=== PATIENT | male | born 1940 | race Caucasian/White ===

== ENCOUNTER 2018-01-08 11:52 | Inpatient (IN) | payer MEDICARE, OTHER ==
[~2018-01-08] VITALS: Ht 177.8 cm; Wt 93.3 kg
[~2018-01-08 11:52] MED LIST: ALLO300 PO; FURO20 PO; LOSA25 PO; METO100ER PO; POTCHL10ER PO; WARF6 PO
[2018-01-08] MEDS ORDERED: XARELTO10 MG PO (12:12)
[2018-01-08 12:54] LABS: BASOPHILS ABSOLUTE AUTO 0.05 K/mm3 (0.00-0.23); BASOPHILS PERCENT AUTO 0 % (0-2); EOSINOPHILS ABSOLUTE AUTO 0.11 K/mm3 (0.00-0.68); EOSINOPHILS PERCENT AUTO 1 % (0-6); Hematocrit 42.9 % (37.0-53.0); IMMATURE GRAN ABSOLUTE AUTO 0.11 K/mm3 (0.00-0.10); IMMATURE GRAN PERCENT AUTO 1 % (0-1); LYMPHOCYTES ABSOLUTE AUTO 1.93 K/mm3 (0.84-5.20); LYMPHOCYTES PERCENT AUTO 13 % (21-46); MONOCYTES PERCENT AUTO 11 % (4-13); Mean Corpuscular HGB 31.5 pg (26.0-34.0); Mean Corpuscular HGB Conc 32.6 g/dL (31.5-36.5); Mean Corpuscular Volume 97 fL (80-100); Mean Platelet Volume 11.1 fL (9.1-12.4); NEUTROPHILS ABSOLUTE AUTO 11.46 K/mm3 (1.96-9.15); NEUTROPHILS PERCENT AUTO 75 % (41-73); Platelet Count 191 K/mm3 (150-400); RDW Coefficient Variation 13.6 % (11.7-14.2); RDW Standard Deviation 48.2 fL (35.1-46.3); Red Blood Cell Count 4.44 M/mm3 (4.30-5.90); White Blood Cell Count 15.26 K/mm3 (4.00-11.30)
[2018-01-08 13:14] LABS: Bun/Creatinine Ratio 17.1 (12.0-20.0); Creatinine, Blood 1.46 mg/dL (0.60-1.20); Potassium, Blood 4.5 mmol/L (3.5-5.5)
[2018-01-09 05:15] LABS: BASOPHILS ABSOLUTE AUTO 0.04 K/mm3 (0.00-0.23); BASOPHILS PERCENT AUTO 0 % (0-2); EOSINOPHILS ABSOLUTE AUTO 0.22 K/mm3 (0.00-0.68); EOSINOPHILS PERCENT AUTO 2 % (0-6); Hematocrit 38.5 % (37.0-53.0); Hemoglobin 12.4 g/dL (13.5-17.5); IMMATURE GRAN ABSOLUTE AUTO 0.07 K/mm3 (0.00-0.10); IMMATURE GRAN PERCENT AUTO 1 % (0-1); LYMPHOCYTES ABSOLUTE AUTO 1.53 K/mm3 (0.84-5.20); LYMPHOCYTES PERCENT AUTO 15 % (21-46); MONOCYTES ABSOLUTE AUTO 1.14 K/mm3 (0.16-1.47); MONOCYTES PERCENT AUTO 11 % (4-13); Mean Corpuscular HGB 31.3 pg (26.0-34.0); Mean Corpuscular HGB Conc 32.2 g/dL (31.5-36.5); Mean Corpuscular Volume 97 fL (80-100); Mean Platelet Volume 10.8 fL (9.1-12.4); NEUTROPHILS ABSOLUTE AUTO 7.14 K/mm3 (1.96-9.15); NEUTROPHILS PERCENT AUTO 70 % (41-73); Platelet Count 163 K/mm3 (150-400); RDW Coefficient Variation 13.4 % (11.7-14.2); RDW Standard Deviation 47.9 fL (35.1-46.3); Red Blood Cell Count 3.96 M/mm3 (4.30-5.90); White Blood Cell Count 10.14 K/mm3 (4.00-11.30)
[2018-01-09 05:36] LABS: Albumin, Blood 2.8 g/dL (3.4-5.0); Albumin/Globulin Ratio 0.8 (0.8-1.8); Bilirubin, Total 0.9 mg/dL (0.1-1.0); Bun/Creatinine Ratio 20.5 (12.0-20.0); Calcium, Blood 8.4 mg/dL (8.5-10.1); Creatinine, Blood 1.32 mg/dL (0.60-1.20); Globulin, Blood 3.5 g/dL (2.2-4.0); Potassium, Blood 4.1 mmol/L (3.5-5.5); Total Protein, Blood 6.3 g/dL (6.4-8.2)
[2018-01-10 04:17] LABS: BASOPHILS ABSOLUTE AUTO 0.03 K/mm3 (0.00-0.23); BASOPHILS PERCENT AUTO 0 % (0-2); EOSINOPHILS ABSOLUTE AUTO 0.28 K/mm3 (0.00-0.68); EOSINOPHILS PERCENT AUTO 3 % (0-6); Hematocrit 38.6 % (37.0-53.0); Hemoglobin 12.4 g/dL (13.5-17.5); IMMATURE GRAN ABSOLUTE AUTO 0.08 K/mm3 (0.00-0.10); IMMATURE GRAN PERCENT AUTO 1 % (0-1); LYMPHOCYTES ABSOLUTE AUTO 1.62 K/mm3 (0.84-5.20); LYMPHOCYTES PERCENT AUTO 18 % (21-46); MONOCYTES ABSOLUTE AUTO 1.08 K/mm3 (0.16-1.47); MONOCYTES PERCENT AUTO 12 % (4-13); Mean Corpuscular HGB 31.8 pg (26.0-34.0); Mean Corpuscular HGB Conc 32.1 g/dL (31.5-36.5); Mean Corpuscular Volume 99 fL (80-100); Mean Platelet Volume 10.8 fL (9.1-12.4); NEUTROPHILS ABSOLUTE AUTO 6.16 K/mm3 (1.96-9.15); NEUTROPHILS PERCENT AUTO 67 % (41-73); Platelet Count 162 K/mm3 (150-400); RDW Coefficient Variation 13.7 % (11.7-14.2); RDW Standard Deviation 49.7 fL (35.1-46.3); White Blood Cell Count 9.25 K/mm3 (4.00-11.30)
[2018-01-10 05:08] LABS: Albumin, Blood 2.8 g/dL (3.4-5.0); Albumin/Globulin Ratio 0.8 (0.8-1.8); Bilirubin, Total 0.8 mg/dL (0.1-1.0); Calcium, Blood 8.4 mg/dL (8.5-10.1); Creatinine, Blood 1.53 mg/dL (0.60-1.20); Globulin, Blood 3.5 g/dL (2.2-4.0); Potassium, Blood 4.4 mmol/L (3.5-5.5); Total Protein, Blood 6.3 g/dL (6.4-8.2)
[2018-01-11 04:17] LABS: BASOPHILS ABSOLUTE AUTO 0.04 K/mm3 (0.00-0.23); BASOPHILS PERCENT AUTO 0 % (0-2); EOSINOPHILS PERCENT AUTO 3 % (0-6); Hemoglobin 13.2 g/dL (13.5-17.5); IMMATURE GRAN ABSOLUTE AUTO 0.09 K/mm3 (0.00-0.10); IMMATURE GRAN PERCENT AUTO 1 % (0-1); LYMPHOCYTES ABSOLUTE AUTO 1.75 K/mm3 (0.84-5.20); LYMPHOCYTES PERCENT AUTO 19 % (21-46); MONOCYTES ABSOLUTE AUTO 1.11 K/mm3 (0.16-1.47); MONOCYTES PERCENT AUTO 12 % (4-13); Mean Corpuscular HGB 31.4 pg (26.0-34.0); Mean Corpuscular HGB Conc 32.2 g/dL (31.5-36.5); Mean Corpuscular Volume 97 fL (80-100); Mean Platelet Volume 10.4 fL (9.1-12.4); NEUTROPHILS ABSOLUTE AUTO 5.78 K/mm3 (1.96-9.15); NEUTROPHILS PERCENT AUTO 64 % (41-73); Platelet Count 188 K/mm3 (150-400); RDW Coefficient Variation 13.5 % (11.7-14.2); RDW Standard Deviation 48.2 fL (35.1-46.3); Red Blood Cell Count 4.21 M/mm3 (4.30-5.90); White Blood Cell Count 9.07 K/mm3 (4.00-11.30)
[2018-01-11 04:39] LABS: Bun/Creatinine Ratio 13.7 (12.0-20.0); Calcium, Blood 8.7 mg/dL (8.5-10.1); Creatinine, Blood 1.31 mg/dL (0.60-1.20); Potassium, Blood 4.3 mmol/L (3.5-5.5)
[2018-01-12 06:01] LABS: BASOPHILS ABSOLUTE AUTO 0.05 K/mm3 (0.00-0.23); BASOPHILS PERCENT AUTO 1 % (0-2); EOSINOPHILS ABSOLUTE AUTO 0.29 K/mm3 (0.00-0.68); EOSINOPHILS PERCENT AUTO 4 % (0-6); Hemoglobin 13.4 g/dL (13.5-17.5); IMMATURE GRAN ABSOLUTE AUTO 0.08 K/mm3 (0.00-0.10); IMMATURE GRAN PERCENT AUTO 1 % (0-1); LYMPHOCYTES ABSOLUTE AUTO 1.78 K/mm3 (0.84-5.20); LYMPHOCYTES PERCENT AUTO 23 % (21-46); MONOCYTES PERCENT AUTO 13 % (4-13); Mean Corpuscular HGB 31.3 pg (26.0-34.0); Mean Corpuscular HGB Conc 32.7 g/dL (31.5-36.5); Mean Corpuscular Volume 96 fL (80-100); Mean Platelet Volume 10.4 fL (9.1-12.4); NEUTROPHILS PERCENT AUTO 60 % (41-73); Platelet Count 192 K/mm3 (150-400); RDW Coefficient Variation 13.3 % (11.7-14.2); RDW Standard Deviation 47.3 fL (35.1-46.3); Red Blood Cell Count 4.28 M/mm3 (4.30-5.90)
[2018-01-12 06:20] LABS: Bun/Creatinine Ratio 13.3 (12.0-20.0); Creatinine, Blood 1.28 mg/dL (0.60-1.20); Potassium, Blood 4.3 mmol/L (3.5-5.5)
[2018-01-13 04:06] LABS: Hematocrit 41.5 % (37.0-53.0); Hemoglobin 13.6 g/dL (13.5-17.5); Mean Corpuscular HGB 31.3 pg (26.0-34.0); Mean Corpuscular HGB Conc 32.8 g/dL (31.5-36.5); Mean Corpuscular Volume 95 fL (80-100); Platelet Count 206 K/mm3 (150-400); RDW Coefficient Variation 13.2 % (11.7-14.2); RDW Standard Deviation 46.8 fL (35.1-46.3); Red Blood Cell Count 4.35 M/mm3 (4.30-5.90); White Blood Cell Count 9.02 K/mm3 (4.00-11.30)
[2018-01-13 04:25] LABS: Bun/Creatinine Ratio 12.4 (12.0-20.0); Calcium, Blood 8.9 mg/dL (8.5-10.1); Creatinine, Blood 1.37 mg/dL (0.60-1.20); Potassium, Blood 4.2 mmol/L (3.5-5.5)
[2018-01-15] MEDS ORDERED: OXYC5 PO (11:07)
[2018-01-15] MEDS ORDERED: AMOX875 PO (11:54)
== END 2018-01-15 13:25 | disposition home or self-care (01) | DRG 872 ==
LOC: ER 11:52 → SURS 14:18
PROVIDERS: Internal Medicine; Physician Assistant
DX: A41.9 Sepsis, unspecified organism (principal); N17.9 Acute kidney failure, unspecified; I13.0 Hypertensive heart and chronic kidney disease with heart failure and stage 1 through stage 4 chronic kidney disease, or unspecified chronic kidney disease; I50.22 Chronic systolic (congestive) heart failure; I48.2 Chronic atrial fibrillation; S61.451A Open bite of right hand, initial encounter; W55.01XA Bitten by cat, initial encounter; N18.3 Chronic kidney disease, stage 3 (moderate); M65.141 Other infective (teno)synovitis, right hand; M10.9 Gout, unspecified; Z79.01 Long term (current) use of anticoagulants; Z79.899 Other long term (current) drug therapy; Z87.891 Personal history of nicotine dependence; Z86.73 Personal history of transient ischemic attack (TIA), and cerebral infarction without residual deficits
CPT/HCPCS: 36415; 73130; 73201; 76882; 80048; 80053; 83605; 83880; 85025; 85027; 87040; 96365; 99285; J1885; J2543; J7030; Q9967

== ENCOUNTER 2023-06-14 16:32 | Emergency (ER) | payer MEDICARE, OTHER ==
[~2023-06-14] VITALS: Ht 177.8 cm; Wt 102.5 kg
[~2023-06-14 16:32] MED LIST changes: -DOCU100 PO; -FERROUS SULFAT325 M3 PO
[2023-06-14 17:18] LABS: BASOPHILS ABSOLUTE AUTO 0.02 K/mm3 (0.00-0.23); BASOPHILS PERCENT AUTO 0 % (0-2); EOSINOPHILS PERCENT AUTO 0 % (0-6); Hematocrit 22.2 % (37.0-53.0); Hemoglobin 7.4 g/dL (13.5-17.5); IMMATURE GRAN ABSOLUTE AUTO 0.21 K/mm3 (0.00-0.10); IMMATURE GRAN PERCENT AUTO 1 % (0-1); LYMPHOCYTES ABSOLUTE AUTO 2.05 K/mm3 (0.84-5.20); LYMPHOCYTES PERCENT AUTO 11 % (21-46); MONOCYTES ABSOLUTE AUTO 1.16 K/mm3 (0.16-1.47); MONOCYTES PERCENT AUTO 6 % (4-13); Mean Corpuscular HGB 33.6 pg (26.0-34.0); Mean Corpuscular HGB Conc 33.3 g/dL (31.5-36.5); Mean Corpuscular Volume 101 fL (80-100); Mean Platelet Volume 10.1 fL (9.1-12.4); NEUTROPHILS ABSOLUTE AUTO 15.54 K/mm3 (1.96-9.15); NEUTROPHILS PERCENT AUTO 82 % (41-73); NRBC ABSOLUTE 0.08 K/mm3 (0.00-0.02); NRBC Auto 0.4 /100 WBC (0.0-0.2); Platelet Count 203 K/mm3 (150-400); RDW Coefficient Variation 15.5 % (11.7-14.2); RDW Standard Deviation 54.8 fL (35.1-46.3); White Blood Cell Count 18.98 K/mm3 (4.00-11.30)
[2023-06-14 17:42] LABS: Albumin, Blood 3.2 g/dL (3.4-5.0); Bilirubin, Total 0.6 mg/dL (0.1-1.0); Bun/Creatinine Ratio 30.1 (12.0-20.0); Calcium, Blood 8.9 mg/dL (8.5-10.1); Creatinine, Blood 1.83 mg/dL (0.60-1.20); Globulin, Blood 3.1 g/dL (2.2-4.0); Potassium, Blood 4.8 mmol/L (3.5-5.5); Total Protein, Blood 6.3 g/dL (6.4-8.2)
[2023-06-14 18:54] LABS: International Normalized Ratio 2.04; Prothrombin Time Results 20.6 Sec (9.7-11.5)
[2023-06-14 21:45] VITALS: BP 125/88
== END 2023-06-15 04:06 | disposition home or self-care (01) ==
LOC: ER 16:32 → MEDS 16:33 → ER 06-15 04:06
PROVIDERS: Emergency Medicine
DX: D62 Acute posthemorrhagic anemia (principal); I48.91 Unspecified atrial fibrillation; D68.59 Other primary thrombophilia; N17.9 Acute kidney failure, unspecified; E87.1 Hypo-osmolality and hyponatremia; F10.20 Alcohol dependence, uncomplicated; I12.9 Hypertensive chronic kidney disease with stage 1 through stage 4 chronic kidney disease, or unspecified chronic kidney disease; N18.30 Chronic kidney disease, stage 3 unspecified; Z87.891 Personal history of nicotine dependence; Z79.01 Long term (current) use of anticoagulants; Z79.899 Other long term (current) drug therapy
CPT/HCPCS: 36430; 80053; 85025; 85610; 85730; 86850; 86900; 86901; 86923; 93005; 93010; 99285-25; G0378; J7030; P9016

== ENCOUNTER → 2023-06-14 | Outpatient (CLI) | payer MEDICARE, OTHER ==
[~2023-06-14] MED LIST changes: +ALBU90OI; +AMOX875 PO; +BUDESONIDE0.5 MG/2 M; +Brovana15 MCG/2 M; +DOCU100 PO; +FERROUS SULFAT325 M3 PO; +FLONASE ALLERG9.9 ML; +FURO20; +OXYC5 PO; +PROAIR DIGIHAL90 MCG; +WARF6; +XARELTO10 MG PO
[2023-06-14 15:45] LABS: BASOPHILS ABSOLUTE AUTO 0.03 K/mm3 (0.00-0.23); BASOPHILS PERCENT AUTO 0 % (0-2); EOSINOPHILS PERCENT AUTO 0 % (0-6); Hematocrit 21.8 % (37.0-53.0); Hemoglobin 7.4 g/dL (13.5-17.5); IMMATURE GRAN ABSOLUTE AUTO 0.19 K/mm3 (0.00-0.10); IMMATURE GRAN PERCENT AUTO 1 % (0-1); LYMPHOCYTES ABSOLUTE AUTO 1.43 K/mm3 (0.84-5.20); LYMPHOCYTES PERCENT AUTO 8 % (21-46); MONOCYTES ABSOLUTE AUTO 0.95 K/mm3 (0.16-1.47); MONOCYTES PERCENT AUTO 6 % (4-13); Mean Corpuscular HGB 34.4 pg (26.0-34.0); Mean Corpuscular HGB Conc 33.9 g/dL (31.5-36.5); Mean Corpuscular Volume 101 fL (80-100); Mean Platelet Volume 9.6 fL (9.1-12.4); NEUTROPHILS ABSOLUTE AUTO 14.78 K/mm3 (1.96-9.15); NEUTROPHILS PERCENT AUTO 85 % (41-73); NRBC ABSOLUTE 0.05 K/mm3 (0.00-0.02); NRBC Auto 0.3 /100 WBC (0.0-0.2); Platelet Count 184 K/mm3 (150-400); RDW Coefficient Variation 15.6 % (11.7-14.2); Red Blood Cell Count 2.15 M/mm3 (4.30-5.90); White Blood Cell Count 17.38 K/mm3 (4.00-11.30)
[2023-06-14 15:55] LABS: Albumin, Blood 3.1 g/dL (3.4-5.0); Bilirubin, Total 0.5 mg/dL (0.1-1.0); Calcium, Blood 8.9 mg/dL (8.5-10.1); Globulin, Blood 3.1 g/dL (2.2-4.0); Potassium, Blood 4.8 mmol/L (3.5-5.5); Total Protein, Blood 6.2 g/dL (6.4-8.2)
[2023-06-14 16:56] LABS: International Normalized Ratio 2.13; Prothrombin Time Results 21.4 Sec (9.7-11.5)
== END ==
LOC: LAB 15:40 → LAB SHORT 15:40
PROVIDERS: Emergency Medicine
DX: K13.79 Other lesions of oral mucosa (principal); Z79.01 Long term (current) use of anticoagulants
CPT/HCPCS: 80053; 85025; 85610

== ENCOUNTER 2023-06-24 15:34 | Emergency (ER) | payer MEDICARE, OTHER ==
[~2023-06-24] VITALS: Ht 177.8 cm; Wt 98.4 kg
[~2023-06-24 15:34] MED LIST changes: -WARF6
[2023-06-24 16:22] LABS: BASOPHILS ABSOLUTE AUTO 0.04 K/mm3 (0.00-0.23); BASOPHILS PERCENT AUTO 0 % (0-2); EOSINOPHILS ABSOLUTE AUTO 0.03 K/mm3 (0.00-0.68); EOSINOPHILS PERCENT AUTO 0 % (0-6); Hematocrit 23.7 % (37.0-53.0); Hemoglobin 7.4 g/dL (13.5-17.5); IMMATURE GRAN ABSOLUTE AUTO 0.06 K/mm3 (0.00-0.10); IMMATURE GRAN PERCENT AUTO 1 % (0-1); LYMPHOCYTES ABSOLUTE AUTO 1.36 K/mm3 (0.84-5.20); LYMPHOCYTES PERCENT AUTO 12 % (21-46); MONOCYTES ABSOLUTE AUTO 0.89 K/mm3 (0.16-1.47); MONOCYTES PERCENT AUTO 8 % (4-13); Mean Corpuscular HGB Conc 31.2 g/dL (31.5-36.5); Mean Corpuscular Volume 103 fL (80-100); Mean Platelet Volume 9.4 fL (9.1-12.4); NEUTROPHILS ABSOLUTE AUTO 8.85 K/mm3 (1.96-9.15); NEUTROPHILS PERCENT AUTO 79 % (41-73); NRBC Auto 0.9 /100 WBC (0.0-0.2); Platelet Count 375 K/mm3 (150-400); RDW Coefficient Variation 16.1 % (11.7-14.2); RDW Standard Deviation 59.4 fL (35.1-46.3); Red Blood Cell Count 2.31 M/mm3 (4.30-5.90); White Blood Cell Count 11.23 K/mm3 (4.00-11.30)
[2023-06-24 16:43] LABS: Albumin, Blood 3.2 g/dL (3.4-5.0); Albumin/Globulin Ratio 1.1 (0.8-1.8); Bilirubin, Total 0.3 mg/dL (0.1-1.0); Bun/Creatinine Ratio 16.3 (12.0-20.0); Calcium, Blood 8.6 mg/dL (8.5-10.1); Creatinine, Blood 2.08 mg/dL (0.60-1.20); Magnesium, Blood 2.9 mg/dL (1.6-2.4); Potassium, Blood 4.9 mmol/L (3.5-5.5); Total Protein, Blood 6.2 g/dL (6.4-8.2)
[2023-06-24 21:18] VITALS: BP 124/68
[2023-06-25] MEDS ORDERED: DOCU100 PO (00:44)
[2023-06-25] MEDS ORDERED: FERROUS SULFAT325 M3 PO (00:44)
[2023-06-26] MEDS ORDERED: TORSE20 PO (18:05)
[2023-06-26] MEDS ORDERED: ALDACTONE25 MG PO (18:06)
[2023-06-26] MEDS ORDERED: [UNRECOGNIZED DRUG - CODE] PO (18:07)
[2023-07-08] MEDS ORDERED: FURO40 PO (11:49)
[2023-07-08] MEDS ORDERED: METO50ER PO (11:50)
[2023-07-08] MEDS ORDERED: PANT40 PO (11:50)
[2023-07-08] MEDS ORDERED: K-Dur10 MEQ (11:51)
[2023-07-16] MEDS ORDERED: XARELTO20 MG PO (13:41)
[2023-07-16] MEDS ORDERED: DECADRON6 M1 PO (13:41)
== END 2023-06-25 01:10 | disposition home or self-care (01) ==
LOC: ER 15:34
PROVIDERS: Physician Assistant
DX: D64.9 Anemia, unspecified (principal); I11.0 Hypertensive heart disease with heart failure; I50.20 Unspecified systolic (congestive) heart failure; I48.91 Unspecified atrial fibrillation; Z79.899 Other long term (current) drug therapy; Z79.01 Long term (current) use of anticoagulants; Z79.52 Long term (current) use of systemic steroids; Z87.891 Personal history of nicotine dependence
CPT/HCPCS: 36415; 36430; 71046; 80053; 83735; 85025; 86850; 86900; 86901; 86923; 93005; 93010; 99284-25; J7030; P9016

== ENCOUNTER 2023-12-01 10:00 | Emergency (ER) | payer MEDICARE, OTHER ==
[~2023-12-01] VITALS: Ht 175.3 cm; Wt 79.4 kg
[~2023-12-01 10:00] MED LIST changes: +ALDACTONE25 MG PO; +DECADRON6 M1 PO; +DOCU100 PO; +FERROUS SULFAT325 M3 PO; +FURO40 PO; +K-Dur10 MEQ; +METO50ER PO; +PANT40 PO; +TORSE20 PO; +XARELTO20 MG PO; +[UNRECOGNIZED DRUG - CODE] PO
[2023-12-01 11:13] LABS: BASOPHILS ABSOLUTE AUTO 0.04 K/mm3 (0.00-0.23); BASOPHILS PERCENT AUTO 1 % (0-2); EOSINOPHILS ABSOLUTE AUTO 0.05 K/mm3 (0.00-0.68); EOSINOPHILS PERCENT AUTO 1 % (0-6); Hemoglobin 13.3 g/dL (13.5-17.5); IMMATURE GRAN ABSOLUTE AUTO 0.03 K/mm3 (0.00-0.10); IMMATURE GRAN PERCENT AUTO 0 % (0-1); LYMPHOCYTES ABSOLUTE AUTO 2.59 K/mm3 (0.84-5.20); LYMPHOCYTES PERCENT AUTO 34 % (21-46); MONOCYTES ABSOLUTE AUTO 0.74 K/mm3 (0.16-1.47); MONOCYTES PERCENT AUTO 10 % (4-13); Mean Corpuscular HGB 34.5 pg (26.0-34.0); Mean Corpuscular HGB Conc 33.3 g/dL (31.5-36.5); Mean Corpuscular Volume 104 fL (80-100); Mean Platelet Volume 9.3 fL (9.1-12.4); NEUTROPHILS ABSOLUTE AUTO 4.14 K/mm3 (1.96-9.15); NEUTROPHILS PERCENT AUTO 55 % (41-73); Platelet Count 199 K/mm3 (150-400); RDW Coefficient Variation 15.9 % (11.7-14.2); RDW Standard Deviation 61.2 fL (35.1-46.3); Red Blood Cell Count 3.86 M/mm3 (4.30-5.90); White Blood Cell Count 7.59 K/mm3 (4.00-11.30)
[2023-12-01 11:32] LABS: Albumin, Blood 2.8 g/dL (3.4-5.0); Albumin/Globulin Ratio 0.8 (0.8-1.8); Bilirubin, Total 0.7 mg/dL (0.1-1.0); Bun/Creatinine Ratio 16.6 (12.0-20.0); Calcium, Blood 8.5 mg/dL (8.5-10.1); Creatinine, Blood 0.97 mg/dL (0.60-1.20); Globulin, Blood 3.3 g/dL (2.2-4.0); Potassium, Blood 4.7 mmol/L (3.5-5.5); Total Protein, Blood 6.1 g/dL (6.4-8.2)
[2023-12-01] MEDS ORDERED: NS 1,000 ML IV SCH (12:30)
[2023-12-01] MEDS ORDERED: Acetaminophen 500 MG Tab PO ONE (12:55)
[2023-12-01 13:25] LABS: International Normalized Ratio 3.1; Prothrombin Time Results 30.5 Sec (9.7-11.5)
[2023-12-01 14:14] LABS: Source, Urine Clean Catch
[2023-12-01 14:24] LABS: Appearance, Urine Clear (Clear); Bilirubin, Urine Neg (Neg); Blood, Urine 1+ (Neg); Color, Urine Yellow (P-Yellow); Glucose Qualitative, Urine Neg (Neg); Ketones, Urine Neg (Neg); Leukocyte Esterase, Urine 2+ (Neg); Nitrite, Urine Neg (Neg); Protein, Urine Neg (Neg); Urobilinogen, Urine NORM (Normal)
[2023-12-01 14:39] VITALS: BP 136/79
[2023-12-01 14:42] LABS: Bacteria Many /hpf; Squamous Epithelial Cells Rare /hpf (Few)
[2023-12-01] MEDS ORDERED: CEPH500 PO (14:47)
== END 2023-12-01 15:09 | disposition home or self-care (01) ==
LOC: ER 10:00
PROVIDERS: Emergency Medicine
DX: S42.032A Displaced fracture of lateral end of left clavicle, initial encounter for closed fracture (principal); S00.12XA Contusion of left eyelid and periocular area, initial encounter; N39.0 Urinary tract infection, site not specified; W18.30XA Fall on same level, unspecified, initial encounter; Z79.899 Other long term (current) drug therapy; N18.30 Chronic kidney disease, stage 3 unspecified; D63.1 Anemia in chronic kidney disease; I48.91 Unspecified atrial fibrillation; I13.0 Hypertensive heart and chronic kidney disease with heart failure and stage 1 through stage 4 chronic kidney disease, or unspecified chronic kidney disease; I50.9 Heart failure, unspecified; M10.9 Gout, unspecified; J44.9 Chronic obstructive pulmonary disease, unspecified; Z87.891 Personal history of nicotine dependence
CPT/HCPCS: 70450; 71045; 72125; 73030; 80053; 81001; 84484; 85025; 85610; 85730; 87086; 93005; 93010; 99284-25; A9270; J7030

== ENCOUNTER 2024-08-05 15:08 | Emergency (ER) | payer MEDICARE, OTHER ==
[~2024-08-05] VITALS: Ht 177.8 cm; Wt 83.5 kg
[~2024-08-05 15:08] MED LIST changes: -ALBU90OI; +ALBU90OI INH; +ALLO100 PO; -ALLO300 PO; -BUDESONIDE0.5 MG/2 M; +BUDESONIDE0.5 MG/2 M INH; +CEPH500 PO; +FERSU300 PO; +LIDO700A20 TOP; +WARF3 PO
[2024-08-05 15:10] VITALS: BP 132/86
[2024-08-05] MEDS ORDERED: Phytonadione 5 MG Tab PO ONE (15:15)
== END 2024-08-05 15:35 | disposition home or self-care (01) ==
LOC: ER 15:08
DX: R79.1 Abnormal coagulation profile (principal); I13.0 Hypertensive heart and chronic kidney disease with heart failure and stage 1 through stage 4 chronic kidney disease, or unspecified chronic kidney disease; N18.30 Chronic kidney disease, stage 3 unspecified; I50.9 Heart failure, unspecified; D63.1 Anemia in chronic kidney disease; M10.9 Gout, unspecified; I48.20 Chronic atrial fibrillation, unspecified; J44.9 Chronic obstructive pulmonary disease, unspecified; Z87.891 Personal history of nicotine dependence; Z79.51 Long term (current) use of inhaled steroids; Z79.01 Long term (current) use of anticoagulants; Z79.899 Other long term (current) drug therapy; Z86.73 Personal history of transient ischemic attack (TIA), and cerebral infarction without residual deficits; Z59.89 Other problems related to housing and economic circumstances
CPT/HCPCS: 36415; 85610; 99283; A9270

== ENCOUNTER 2024-10-07 17:10 | Inpatient (IN) | payer MEDICARE, OTHER ==
[~2024-10-07] VITALS: Ht 180.3 cm; Wt 88.6 kg
[2024-10-07 18:30] LABS: BASOPHILS ABSOLUTE AUTO 0.04 K/mm3 (0.00-0.23); BASOPHILS PERCENT AUTO 0 % (0-2); EOSINOPHILS ABSOLUTE AUTO 0.03 K/mm3 (0.00-0.68); EOSINOPHILS PERCENT AUTO 0 % (0-6); Hematocrit 35.6 % (37.0-53.0); Hemoglobin 12.2 g/dL (13.5-17.5); IMMATURE GRAN ABSOLUTE AUTO 0.05 K/mm3 (0.00-0.10); IMMATURE GRAN PERCENT AUTO 1 % (0-1); LYMPHOCYTES ABSOLUTE AUTO 2.13 K/mm3 (0.84-5.20); LYMPHOCYTES PERCENT AUTO 22 % (21-46); MONOCYTES ABSOLUTE AUTO 0.77 K/mm3 (0.16-1.47); MONOCYTES PERCENT AUTO 8 % (4-13); Mean Corpuscular HGB 38.4 pg (26.0-34.0); Mean Corpuscular HGB Conc 34.3 g/dL (31.5-36.5); Mean Corpuscular Volume 112 fL (80-100); Mean Platelet Volume 10.5 fL (9.1-12.4); NEUTROPHILS ABSOLUTE AUTO 6.54 K/mm3 (1.96-9.15); NEUTROPHILS PERCENT AUTO 68 % (41-73); Platelet Count 126 K/mm3 (150-400); RDW Coefficient Variation 16.6 % (11.7-14.2); RDW Standard Deviation 69.2 fL (35.1-46.3); Red Blood Cell Count 3.18 M/mm3 (4.30-5.90); White Blood Cell Count 9.56 K/mm3 (4.00-11.30)
[2024-10-07 18:40] LABS: Albumin, Blood 2.1 g/dL (3.4-5.0); Albumin/Globulin Ratio 0.6 (0.8-1.8); Bilirubin, Total 2.8 mg/dL (0.1-1.0); Bun/Creatinine Ratio 9.4 (12.0-20.0); Calcium, Blood 8.6 mg/dL (8.5-10.1); Creatinine, Blood 1.91 mg/dL (0.60-1.20); Globulin, Blood 3.7 g/dL (2.2-4.0); Potassium, Blood 3.4 mmol/L (3.5-5.5); Total Protein, Blood 5.8 g/dL (6.4-8.2)
[2024-10-07] MEDS ORDERED: HYDROCODONE-AC1 EA19 PO (18:47)
[2024-10-07] MEDS ORDERED: CEPH500 PO (18:47)
[2024-10-07] MEDS ORDERED: OMEP20ER PO (18:50)
[2024-10-07 19:02] LABS: Magnesium, Blood 1.7 mg/dL (1.6-2.4); Phosphorus, Blood 3.5 mg/dL (2.5-4.9)
[2024-10-07 19:07] LABS: International Normalized Ratio 3.49
[2024-10-07] MEDS ORDERED: NS 1,000 ML IV SCH ×2 (20:10→21:55)
[2024-10-07] MEDS ORDERED: Potassium Chloride 40 MEQ in NS 250 ML IV STA (20:52)
[2024-10-07] MEDS ORDERED: Magnesium Sulf 2 GM/Water 50ML 50 ML IV ONE (20:55)
[2024-10-07] MEDS ORDERED: Potassium Chloride 20 MEQ TabCR PO ONE (21:00)
[2024-10-07] MEDS ORDERED: Albuterol 2.5 MG/3 ML VIAL INH PRN (21:55)
[2024-10-07] MEDS ORDERED: OxyCODONE HCL 5 MG TAB PO PRN (22:00)
[2024-10-07] MEDS ORDERED: Ondansetron HCl 2 MG / ML 2ML Vial IV PRN (22:00)
[2024-10-07] MEDS ORDERED: FLU VACC TS2024-25(6MOS UP)/PF 45 MCG/0.5 ML SYRINGE IM ONE (22:00)
[2024-10-07] MEDS ORDERED: CefTRIAXone Sodium 1,000 MG in NS 100 ML IV SCH (22:20)
[2024-10-07 23:20] VITALS: BP 116/81
[2024-10-08 04:52] VITALS: BP 96/55
--- NOTE | 2024-10-08 05:22 | NUR ---
SHIFT SUMMARY PT ALERT AND ORIENTED TIMES 3-4. ROOM AIR, EARLY ONSET DEMENIA. PT ABLE TO MAKE NEEDS KNOWN AND RECEPTIVE TO CARE. GAVE ANTIBIOTICS BED IN LOW POSITION, CALL LIGHT WITHIN REACH, RAILS TIMES 2.
[2024-10-08 05:40] LABS: Hematocrit 36.2 % (37.0-53.0); Hemoglobin 12.4 g/dL (13.5-17.5); Mean Corpuscular HGB Conc 34.3 g/dL (31.5-36.5); Mean Corpuscular Volume 111 fL (80-100); Mean Platelet Volume 10.5 fL (9.1-12.4); Platelet Count 105 K/mm3 (150-400); RDW Coefficient Variation 16.3 % (11.7-14.2); RDW Standard Deviation 67.4 fL (35.1-46.3); Red Blood Cell Count 3.26 M/mm3 (4.30-5.90)
[2024-10-08 05:54] LABS: International Normalized Ratio 3.67; Prothrombin Time Results 35.7 Sec (9.7-11.5)
[2024-10-08] MEDS ORDERED: Omeprazole 20 MG CapCR PO SCH (06:00)
[2024-10-08 06:14] LABS: Albumin, Blood 1.9 g/dL (3.4-5.0); Albumin/Globulin Ratio 0.6 (0.8-1.8); Bilirubin, Total 2.6 mg/dL (0.1-1.0); Bun/Creatinine Ratio 10.2 (12.0-20.0); Calcium, Blood 8.6 mg/dL (8.5-10.1); Creatinine, Blood 1.77 mg/dL (0.60-1.20); Globulin, Blood 3.4 g/dL (2.2-4.0); Magnesium, Blood 2.1 mg/dL (1.6-2.4); Potassium, Blood 3.8 mmol/L (3.5-5.5); Total Protein, Blood 5.3 g/dL (6.4-8.2)
[2024-10-08 07:16] VITALS: BP 107/72
[2024-10-08] MEDS ORDERED: Allopurinol 100 MG Tab PO SCH (09:00)
[2024-10-08 16:01] VITALS: BP 100/82
--- NOTE | 2024-10-08 16:46 | NUR ---
NO ACUTE CHANGES, CLEARLY MAKES NEEDS KNOWN, SOME QUING NEEDED, FAMILY AT BEDSIDE HELPFUL WITH CARE, MEDICATED FOR PAIN X1, DIET CHANGED TO SOFT BITE SIDE, NEW IV TO LEFT AC, NS INFUSING, NEED URINE FOR UA, CALL LIGHT WITH IN REACH, WILL RELAY TO PM RN
[2024-10-08 19:15] VITALS: BP 117/79
[2024-10-09 04:00] VITALS: BP 116/76
--- NOTE | 2024-10-09 04:26 | NUR ---
SHIFT SUMMARY PATIENT IS ALERT AND ORIENTED 3-4X. PATIENT HAS HAS NO ACUTE EVENTS THIS SHIFT. VITAL SIGNS REVIEWED. PATIENT HAS BEEN SLEEPING MOST OF SHIFT. PATIENT HAS HAD NO COMPLAINTS OF PAIN, NAUSEA, SOB OR VOMITTING THIS SHIFT. IV FLUIDS INFUSED ORDERED. ABX INFUSED ORDERED. PATIENT HAS BEEN A STANDBY ASSIST TO BATHROOM. NO EVENTS ON TELE. BED IN LOCKED AND LOWEST POSITON. CALL LIGHT IN PLACE.
[2024-10-09 06:16] LABS: BASOPHILS ABSOLUTE AUTO 0.06 K/mm3 (0.00-0.23); BASOPHILS PERCENT AUTO 1 % (0-2); EOSINOPHILS ABSOLUTE AUTO 0.36 K/mm3 (0.00-0.68); EOSINOPHILS PERCENT AUTO 4 % (0-6); Hematocrit 37.4 % (37.0-53.0); Hemoglobin 12.9 g/dL (13.5-17.5); IMMATURE GRAN ABSOLUTE AUTO 0.06 K/mm3 (0.00-0.10); IMMATURE GRAN PERCENT AUTO 1 % (0-1); LYMPHOCYTES ABSOLUTE AUTO 1.82 K/mm3 (0.84-5.20); LYMPHOCYTES PERCENT AUTO 18 % (21-46); MONOCYTES ABSOLUTE AUTO 1.08 K/mm3 (0.16-1.47); MONOCYTES PERCENT AUTO 11 % (4-13); Mean Corpuscular HGB 38.9 pg (26.0-34.0); Mean Corpuscular HGB Conc 34.5 g/dL (31.5-36.5); Mean Corpuscular Volume 113 fL (80-100); Mean Platelet Volume 10.7 fL (9.1-12.4); NEUTROPHILS ABSOLUTE AUTO 6.68 K/mm3 (1.96-9.15); NEUTROPHILS PERCENT AUTO 66 % (41-73); Platelet Count 110 K/mm3 (150-400); RDW Coefficient Variation 16.6 % (11.7-14.2); RDW Standard Deviation 69.2 fL (35.1-46.3); Red Blood Cell Count 3.32 M/mm3 (4.30-5.90); White Blood Cell Count 10.06 K/mm3 (4.00-11.30)
[2024-10-09 06:40] LABS: Albumin, Blood 2.1 g/dL (3.4-5.0); Albumin/Globulin Ratio 0.6 (0.8-1.8); Bilirubin, Total 2.3 mg/dL (0.1-1.0); Bun/Creatinine Ratio 12.2 (12.0-20.0); Calcium, Blood 8.6 mg/dL (8.5-10.1); Creatinine, Blood 1.48 mg/dL (0.60-1.20); Globulin, Blood 3.7 g/dL (2.2-4.0); Potassium, Blood 3.7 mmol/L (3.5-5.5); Total Protein, Blood 5.8 g/dL (6.4-8.2)
[2024-10-09 07:11] VITALS: BP 102/82
--- NOTE | 2024-10-09 09:22 | NUR ---
PATIETN AWAKE AND STTING AT EDGE OF BED THIS AM, REQUESTED PAIN MEDICATION, ST CAME FOR THE COGNITIVE SCREEN, PATIENT WAS MORE DROWSY, ST TO ROUND AGAIN TODAY, CALL LIGHT WITH IN REACH
[2024-10-09 10:51] LABS: International Normalized Ratio 3.31; Prothrombin Time Results 32.4 Sec (9.7-11.5)
[2024-10-09 12:13] LABS: Source, Urine Straight Cath
[2024-10-09 12:19] LABS: Appearance, Urine Hazy (Clear); Bilirubin, Urine Neg (Neg); Blood, Urine 5+ (Neg); Color, Urine Amber (P-Yellow); Glucose Qualitative, Urine Neg (Neg); Ketones, Urine 1+ (Neg); Leukocyte Esterase, Urine 2+ (Neg); Nitrite, Urine Neg (Neg); Protein, Urine 2+ (Neg); Specific Gravity, Urine 1.015 (1.003-1.022); Urobilinogen, Urine 1+ (Normal)
[2024-10-09 12:31] LABS: Red Blood Cells, Urine 25-50 /hpf (0-2)
[2024-10-09 12:37] LABS: Amorphous Light (0-Heavy); Bacteria Mod /hpf; Granular Casts 0-2 /lpf (0)
[2024-10-09 12:38] LABS: Squamous Epithelial Cells Rare /hpf (Few); Transitional Epithelial Cells Rare /hpf (0-Rare)
--- NOTE | 2024-10-09 14:03 | NUR ---
Spiritual care visit conducted. Patient is lying in bed and his son is bedside. Patient explains that he is Jew and he and his son (also named Abhijeet) tell me about his other son and daughter and the positive support that he has with his family and the Quaker. They explain the list of medical problems that the patient has and the hopes for this visit. I provided therapeutic listening and prayer. The patient and Abhijeet responded well and showed signs of greater peace.
[2024-10-09] MEDS ORDERED: LORazepam 2 MG/ML 1ML Injection IV PRN (15:00)
[2024-10-09] MEDS ORDERED: ChlordiazePOXIDE 25 MG Cap PO PRN (15:00)
[2024-10-09] MEDS ORDERED: LORazepam 1 MG Tab PO PRN (15:05)
[2024-10-09 15:17] VITALS: BP 121/86
[2024-10-09] MEDS ORDERED: Furosemide 10 MG / ML 2ML Vial IV ONE (15:30)
[2024-10-09] MEDS ORDERED: oxyBUTYnin chloride 5 MG TAB PO ONE (15:30)
--- NOTE | 2024-10-09 17:04 | NUR ---
RENAL/BLADDER US IN ROOM NOW, PATIENT VERY RESTLESS, UNCOMFORTABLE, PATIENT UNABLE TO VOID IN PAIGE CATHETER, CALL LIGHT WITH IN REACH
--- NOTE | 2024-10-09 17:53 | NUR ---
PATIENT ALERT AND ORIENTED X2 THIS AM, CONFUSION INCREASED THROUGH THE DAY, PATIENT HAVING A HARD TIME ORGANIZING SENTENCES. ABD PAIN, NO URINE OUT PUT. BLADDER SCAN SHOWED >900, PAIGE PLACED, 150 OUT, ABD DISTENDED. REPORTED TO DR PERES, RENAL AND US DONE, BLADDER WAS DECOMPRESSED, FLUID IS ALL ABD AND FLANK ASICTES, MEDICATED WITH OXYBUTIN AND LASIX. INCREASED CONFUSION, RETLESS NESS, AND GRIMACING, CIWA 15, MEDICATED WITH 25 MG LIBRIUM. PATIENT NOW COMFORTABLE, TELE 115 AFIB, PATIENT EASILY GOES TO 150 WITH RESTLESS NESS, DR PERES AWARE. PAIGE DRAINING RED DUE TO TRAUMATIC PLACEMENT, 18 COUDE USED FOR PATIENTS BPH AND URETHRAL HISTORY. FAMILY HELPFUL AT BEDSIDE, BED ALARM ON, CALL LIGHT WITH IN REACH
[2024-10-09 19:24] VITALS: BP 129/90
--- NOTE | 2024-10-10 03:43 | NUR ---
SHIFT SUMMARY PT IS A&O X2, PER [facility] PROTOCOL Q4HRS, PT SCORED 11 @MIDNIGHT, AND 18 @ 0400. ATIVAN PRN 1MG PO ADMINISTERED BOTH TIMES. PAIGE DRAINING RED URINE, PT REMOVED THE STAT LOCK FROM INNER THIGH, REPLACED DURING THIS SHIFT. PT LAYING ON HIS SIDE, UNABLE TO REPOSITION HIMSELF D/T CONFUSION. PT PULLING TELE CORDS, AND HOLDING ONTO BEDRAIL. THREE RAILS UP. BED ALARM FOR SAFETY. REORIENTED UNSUCCESFULLY. PT IS NOT ABLE TO MAKE HIS NEEDS KNOWN, BUT IS COOPERATIVE WITH CARE. BED AT THE LOWEST POSITION, CALL LIGHT WITHIN REACH. ALINING INSPECTOR NOTIFIED D/T PT'S INCREASING CONFUSION. FREQUENT CHECKS BY THE BEDSIDE.
[2024-10-10 04:02] VITALS: BP 98/75
--- NOTE | 2024-10-10 04:46 | NUR ---
@0300 PT AGITATED AND ANXIOUS. LAYING IN BED FIDGETING. COOPERATIVE WITH CARE. CONFUSED. A/O X2. CIWA SCORE OF 18. ATIVAN PRN PO 1MG ADMINISTERED ORDERED. @0400, CIWA SCORE OF 3 PER ASSESSMENT WHILE PT EYES CLOSED RESTING. 0300 ADMINISTERED ATIVAN PRN EFFECTIVE. NO S/SX OF ACUTE DISTRESS NOTED. PT'S RR EVEN, UNLABORED. TELE MONITORED. BED AT THE LOWEST POSITION, CALL LIGHT WITHIN REACH.
[2024-10-10 06:17] LABS: International Normalized Ratio 2.92; Prothrombin Time Results 28.9 Sec (9.7-11.5)
[2024-10-10 07:12] VITALS: BP 89/59
--- NOTE | 2024-10-10 08:10 | NUR ---
PATIENT SLEEPING, NO DISTRESS, BED ALARM ON, CALL LIGHT WITH IN REACH
[2024-10-10 11:11] LABS: Albumin/Globulin Ratio 0.6 (0.8-1.8); Bun/Creatinine Ratio 12.2 (12.0-20.0); Calcium, Blood 8.7 mg/dL (8.5-10.1); Creatinine, Blood 1.56 mg/dL (0.60-1.20); Globulin, Blood 3.5 g/dL (2.2-4.0); Potassium, Blood 3.8 mmol/L (3.5-5.5); Total Protein, Blood 5.5 g/dL (6.4-8.2)
[2024-10-10 15:18] VITALS: BP 93/77
[2024-10-10] MEDS ORDERED: Lactated Ringer's 1,000 ML IV SCH (15:50)
[2024-10-10] MEDS ORDERED: Furosemide 10 MG / ML 2ML Vial IV SCH (16:00)
[2024-10-10] MEDS ORDERED: Albumin Human 50 ML IV SCH (17:00)
--- NOTE | 2024-10-10 18:22 | NUR ---
NO ACUTE CHANGES, PATTIENT DROWSY AND SLEPT MAJORITY OF DAY, FAMILY HELPFUL WITH CARE AT BEDSIDE, LR STARTED, IV LASIX AND ALBUMIN GIVEN, FOLRY TO GRAVITY- URINE STILL RED/PINK FROM TRAUMATIC PLACEMENT, AFIB 100-120S TODAY, PATIENT MAKING FULL SENTENCES, CIWA 7, PATIENT ALERT AND ORIENTED TO SELF, FAMILY, AND STAFF ONLY, UNABLE TO REDIRECT OR EDUCATE THERE IS A PAIGE IN PLACE, PATEINT CONTIUES TO FEEL PRESSURE IN PELVIC AREA. BED/CHAIR ALARM USED, RECLINER IN ROOM FOR PATIENT, CALL LIGHT WITH IN REACH
[2024-10-10 19:19] VITALS: BP 126/70
[2024-10-10] MEDS ORDERED: NS 250 ML IV PRN (20:25)
[2024-10-11 04:12] VITALS: BP 134/85
--- NOTE | 2024-10-11 04:17 | NUR ---
SHIFT SUMMARY PT IS A&O X2, CONFUSED AND SOMEWHAT AGITATED INTERMITTENTLY. CIWA Q4HRS: SCORES OF 4,10, AND 8. PO PRN 1MG ATIVAN ADMINISTERED AT MIDNIGHT FOR THE SCORE OF 10, R/T AGITATION, ANXIETY AND ORIENTATION. PT REPORTS "NEEDING TO PEE", C/O PRESSURE ON LOWER ABDOMEN. PAIGE DRAINING TO GRAVITY, RED COLOR URINE. TELE: A-FIB @105. PT DENIES PAIN DURING THIS SHIFT. NEW IV ON RAC D/T INFILTRATION. NO ACUTE EVENTS DURING THIS SHIFT. BED AT THE LOWEST POSITION, CALL LIGHT WITHIN REACH. PT IS ABLE TO MAKE HIS NEEDS KNOWN.
[2024-10-11 05:21] LABS: BASOPHILS ABSOLUTE AUTO 0.06 K/mm3 (0.00-0.23); BASOPHILS PERCENT AUTO 1 % (0-2); EOSINOPHILS PERCENT AUTO 3 % (0-6); Hematocrit 35.4 % (37.0-53.0); Hemoglobin 12.2 g/dL (13.5-17.5); IMMATURE GRAN ABSOLUTE AUTO 0.03 K/mm3 (0.00-0.10); IMMATURE GRAN PERCENT AUTO 0 % (0-1); LYMPHOCYTES ABSOLUTE AUTO 1.38 K/mm3 (0.84-5.20); LYMPHOCYTES PERCENT AUTO 15 % (21-46); MONOCYTES ABSOLUTE AUTO 0.96 K/mm3 (0.16-1.47); MONOCYTES PERCENT AUTO 10 % (4-13); Mean Corpuscular HGB 38.7 pg (26.0-34.0); Mean Corpuscular HGB Conc 34.5 g/dL (31.5-36.5); Mean Corpuscular Volume 112 fL (80-100); Mean Platelet Volume 11.6 fL (9.1-12.4); NEUTROPHILS ABSOLUTE AUTO 6.81 K/mm3 (1.96-9.15); NEUTROPHILS PERCENT AUTO 71 % (41-73); Platelet Count 74 K/mm3 (150-400); RDW Coefficient Variation 16.4 % (11.7-14.2); RDW Standard Deviation 68.1 fL (35.1-46.3); Red Blood Cell Count 3.15 M/mm3 (4.30-5.90); White Blood Cell Count 9.54 K/mm3 (4.00-11.30)
[2024-10-11 05:34] LABS: International Normalized Ratio 2.89; Prothrombin Time Results 28.6 Sec (9.7-11.5)
[2024-10-11 05:46] LABS: Albumin, Blood 2.2 g/dL (3.4-5.0); Albumin/Globulin Ratio 0.6 (0.8-1.8); Bilirubin, Total 2.1 mg/dL (0.1-1.0); Bun/Creatinine Ratio 15.2 (12.0-20.0); Calcium, Blood 8.9 mg/dL (8.5-10.1); Creatinine, Blood 1.38 mg/dL (0.60-1.20); Globulin, Blood 3.4 g/dL (2.2-4.0); Potassium, Blood 3.6 mmol/L (3.5-5.5); Total Protein, Blood 5.6 g/dL (6.4-8.2)
[2024-10-11 07:18] VITALS: BP 125/98
--- NOTE | 2024-10-11 10:16 | NUR ---
CALLED MD TO REMOVE PAIGE CATHETER. DR. PERES STATES PATIENT DID NOT TOLERATE REMOVAL WELL LAST ATTEMPT AND WISHES TO KEEP PAIGE CATHETER IN PLACE UNTIL PATIENT IMRPOVES.
[2024-10-11] MEDS ORDERED: Dose Adjust by Pharmacy XX STA (14:02)
[2024-10-11 15:35] VITALS: BP 115/86
--- NOTE | 2024-10-11 18:44 | NUR ---
SHIFT SUMMARY PATIENT RESPONDING TO VERBAL STIMULI, IMPUSLIVE, ORIENTED TO SELF. LETHARGIC AND SLEEPING MOST OF SHIFT. PAIGE IN PLACE FOR ACUTE RETENTION, MD DOES NOT WANT TO REMOVE AT THIS TIME. CIWA Q4H HOURS, HIGHEST SCORE OF 10 THIS AM, ATIVAN GIVEN X1 THIS SHIFT. PATIENT WITH NO BM SINCE ADMIT, LEFT MESSAGE WITH MD REGAURDING NO PRN BOWEL MEDS. FAMILY AT BEDSIDE THIS MORNING AND EARLY AFTERNOON. IV FLUIDS RUNNING PER DEC, NO OTHER COCNERNS AT THIS TIME.
[2024-10-11 19:50] VITALS: BP 118/62
[2024-10-12 03:15] VITALS: BP 128/90
--- NOTE | 2024-10-12 04:35 | NUR ---
PT IS A 84 YO FULL CODE WHO WAS ADMITTED FOR [facility]. PT HAS BEEN RESTLESS MOST OF THE NIGHT AND PICKS AT HIS LINES AND CONSTANTLY REMOVES TELE PATCHES. I PUT A GOWN ON HIM AND THAT SEEMED TO HELP SOME. PT HAS CONT LR RUNNING AT 100ML/HR. I CHANGED THE IV DRESSING AND RE WRAPPED HIS IV FOR PROTECTION AND TO PREV THE PATIENT FROM PULLING IT OUT. PT IS CONFUSED BUT KNOWS HIS NAME AND WILL RESPOND TO QUESTIONS. I ENCOURAGED THE PT TO EAT BUT HE DID NOT WANT TO EAT. PT HAS CLEAN BEDDING AND BRIEFS AND HAS A PAIGE CATH. PT HAS BLOOY URINE. PT IS ON TELE AND RUNS AFIB @110 PT RUNS TACHY. PT'S DAUGHTER WAS IN THE ROOM AT THE BEG OF SHIFT AND REPORTED THE PT SLEEPING MOST OF THE DAY. PT IS VERY UNSTEADY ON HIS LEGS AND IS A 2 PERSON TO REPOSISTION. PT HAS BED ALARM SET AND CALL LIGHT IN REACH
[2024-10-12 05:47] LABS: BASOPHILS ABSOLUTE AUTO 0.06 K/mm3 (0.00-0.23); BASOPHILS PERCENT AUTO 1 % (0-2); EOSINOPHILS ABSOLUTE AUTO 0.23 K/mm3 (0.00-0.68); EOSINOPHILS PERCENT AUTO 2 % (0-6); Hematocrit 35.1 % (37.0-53.0); Hemoglobin 12.2 g/dL (13.5-17.5); IMMATURE GRAN ABSOLUTE AUTO 0.04 K/mm3 (0.00-0.10); IMMATURE GRAN PERCENT AUTO 0 % (0-1); LYMPHOCYTES ABSOLUTE AUTO 1.39 K/mm3 (0.84-5.20); LYMPHOCYTES PERCENT AUTO 12 % (21-46); MONOCYTES ABSOLUTE AUTO 1.04 K/mm3 (0.16-1.47); MONOCYTES PERCENT AUTO 9 % (4-13); Mean Corpuscular HGB 38.6 pg (26.0-34.0); Mean Corpuscular HGB Conc 34.8 g/dL (31.5-36.5); Mean Corpuscular Volume 111 fL (80-100); Mean Platelet Volume 11.2 fL (9.1-12.4); NEUTROPHILS ABSOLUTE AUTO 8.55 K/mm3 (1.96-9.15); NEUTROPHILS PERCENT AUTO 76 % (41-73); Platelet Count 71 K/mm3 (150-400); RDW Coefficient Variation 16.3 % (11.7-14.2); RDW Standard Deviation 66.7 fL (35.1-46.3); Red Blood Cell Count 3.16 M/mm3 (4.30-5.90); White Blood Cell Count 11.31 K/mm3 (4.00-11.30)
[2024-10-12 06:16] LABS: Albumin, Blood 2.5 g/dL (3.4-5.0); Albumin/Globulin Ratio 0.7 (0.8-1.8); Bilirubin, Total 2.8 mg/dL (0.1-1.0); Calcium, Blood 9.2 mg/dL (8.5-10.1); Creatinine, Blood 1.2 mg/dL (0.60-1.20); Globulin, Blood 3.4 g/dL (2.2-4.0); Potassium, Blood 3.3 mmol/L (3.5-5.5); Total Protein, Blood 5.9 g/dL (6.4-8.2)
[2024-10-12 06:32] LABS: International Normalized Ratio 2.41; Prothrombin Time Results 24.2 Sec (9.7-11.5)
[2024-10-12 07:01] LABS: BASOPHILS PERCENT MAN 0 % (0-2); EOSINOPHILS PERCENT MAN 0 % (0-6); LYMPHOCYTES ABSOLUTE MAN 1.13 K/mm3 (0.84-5.20); LYMPHOCYTES PERCENT MAN 10 % (21-46); MONOCYTES ABSOLUTE MAN 0.45 K/mm3 (0.16-1.47); MONOCYTES PERCENT MAN 4 % (4-13); NEUTROPHILS ABSOLUTE MAN 9.72 K/mm3 (1.96-9.15); SEG NEUTROPHILS PERCENT MAN 86 % (41-73); TOTAL CELLS COUNTED 100
[2024-10-12 07:15] VITALS: BP 136/79
[2024-10-12] MEDS ORDERED: Polyethylene Glycol 3350 17 gm PO PRN (08:10)
[2024-10-12] MEDS ORDERED: Metoprolol Tartrate 25 MG Tab PO SCH (08:30)
[2024-10-12] MEDS ORDERED: Docusate Sodium/Senna 1 Tab PO SCH (09:00)
[2024-10-12] MEDS ORDERED: Potassium Chloride 10 Meq Tablet SA PO ONE (09:00)
[2024-10-12 14:03] LABS: Percent Saturation 62.5 % (20.0-50.0)
[2024-10-12 15:33] VITALS: BP 96/59
--- NOTE | 2024-10-12 17:51 | NUR ---
CALLED PHARMACY TO INFORM THAT PATIENT NOT TOLERATING PO INTAKE DUE TO MENTATION. PARTIAL DOSE OF LIQUID COUMADIN ADMINISTERED. AWARE.
[2024-10-12] MEDS ORDERED: Warfarin Sodium 1 MG Tab PO SCH (18:00)
--- NOTE | 2024-10-12 18:00 | NUR ---
SHIFT SUMMARY PATIENT RESPONDING TO VERBAL STIMULI, ORIENTED TO SELF. PATIENT WITH HALLUCINATIONS THIS AM AND CIWA SCORE OF 13, ATIVAN ADMINISTERED PER MAR. PATIENT NEEDING MEDICATIONS CRUSHED TODAY DUE TO MENTATION. PATIENT STILL WITH NO BOWEL MOVEMENT SINCE ADMISSION, MD AWARE. PRN AND SCHEDULED BOWEL MEDS ADMINISTERED THIS SHIFT. TELEMETRY IN PLACE, WELDING ESTIMATOR CALLED THIS MORNING TO NOTIFY THAT PATIENT HAD HEART RATE IN 140s-160s FOR ABOUT 45 MINUTES. MD NOTIFIED AND ORDER FOR METOPROLOL ADMINISTERED PER DEC. PATIENT HAD FAMILY VISIT THROUGHOUT THE DAY AND WERE UPDATED ON PATIENT STATUS. MD NOTIFIED THIS EVENING THAT PATIENT NOT TOLERATING PO INTAKE AND SCHEDULED LIQUID WARFARIN THAT WAS REQUESTED FROM PHARMACY WAS PARTIALLY ADMINISTERED DUE TO INTOLERANCE. PATIENT NOT ABLE TO FOLLOW COMMANDS AND SWALLOW SAFELY. REQUESTED SPEECH CONSULT FROM MD. PHARMACY NOTIFIED OF PATIENT BEING ADMINISTERED PARTIAL DOSE OF WARFARIN. NO OTHER CONCERNS AT THIS TIME.
[2024-10-12 19:18] VITALS: BP 136/83
[2024-10-13 04:44] VITALS: BP 116/89
--- NOTE | 2024-10-13 06:11 | NUR ---
SHIFT SUMMARY 84 YR M ADMITTED ON 10/08/24. FULL CODE. PT HAS BEEN NON VERBAL TO THIS NURSE FOR THIS SHIFT. WHEN ASKED QUESTIONS HE WILL SHAKE HIS HEAD YES OR NO BUT WILL NOT OPEN HIS EYES OR SPEAK. HE HAS REFUSED ALL ORAL MEDS THIS SHIFT. WHEN ASKED IF HE WAS HAVING HALLUCINATIONS OR HEARING THINGS HE SHOOK HIS HEAD YES. WITH THAT AND AGITATION HE HAS SCORED HIGH ON BOTH CIWA'S DONE THIS SHIFT. 4 MG ATIVAN HAS BEEN GIVEN TWICE THIS SHIFT. PT HAS BEEN RESTLESS AND AGITATED AND HAS CONTINUOUSLY PULLED OFF HIS TELE LEADS, WELL FIGITING WITH HIS PAIGE. HE THRASHES AROUND IN THE BED WELL AND KEEPS PUTTING HIS LEGS OVER THE RAILING. PAIGE IS DRAINING ORANGE COLORED URINE. BED IS IN LOW POSITION AND CALL LIGHT IN REACH.
[2024-10-13 06:15] LABS: International Normalized Ratio 2.39
[2024-10-13 07:24] VITALS: BP 129/98
[2024-10-13 08:29] LABS: Albumin, Blood 2.6 g/dL (3.4-5.0); Albumin/Globulin Ratio 0.9 (0.8-1.8); Bilirubin, Total 2.7 mg/dL (0.1-1.0); Bun/Creatinine Ratio 14.5 (12.0-20.0); Calcium, Blood 9.2 mg/dL (8.5-10.1); Creatinine, Blood 1.1 mg/dL (0.60-1.20); Potassium, Blood 3.2 mmol/L (3.5-5.5); Total Protein, Blood 5.6 g/dL (6.4-8.2)
[2024-10-13] MEDS ORDERED: Potassium Chloride 40 MEQ in NS 250 ML IV STA (09:20)
[2024-10-13 11:30] LABS: Base Excess Venous 3.1 mmol/L; Bicarbonate Venous 26.5 mmol/L (24.0-30.0); PCO2 Venous 40.6 mmHg (38-42); pH Blood Venous 7.44 (7.34-7.37)
[2024-10-13 11:37] LABS: BASOPHILS ABSOLUTE AUTO 0.05 K/mm3 (0.00-0.23); BASOPHILS PERCENT AUTO 1 % (0-2); EOSINOPHILS ABSOLUTE AUTO 0.15 K/mm3 (0.00-0.68); EOSINOPHILS PERCENT AUTO 2 % (0-6); Hematocrit 33.4 % (37.0-53.0); Hemoglobin 11.7 g/dL (13.5-17.5); IMMATURE GRAN ABSOLUTE AUTO 0.03 K/mm3 (0.00-0.10); IMMATURE GRAN PERCENT AUTO 0 % (0-1); LYMPHOCYTES ABSOLUTE AUTO 1.04 K/mm3 (0.84-5.20); LYMPHOCYTES PERCENT AUTO 11 % (21-46); MONOCYTES PERCENT AUTO 10 % (4-13); Mean Corpuscular HGB 38.9 pg (26.0-34.0); Mean Corpuscular Volume 111 fL (80-100); Mean Platelet Volume 11.2 fL (9.1-12.4); NEUTROPHILS ABSOLUTE AUTO 6.97 K/mm3 (1.96-9.15); NEUTROPHILS PERCENT AUTO 76 % (41-73); Platelet Count 58 K/mm3 (150-400); RDW Coefficient Variation 16.4 % (11.7-14.2); RDW Standard Deviation 67.5 fL (35.1-46.3); Red Blood Cell Count 3.01 M/mm3 (4.30-5.90); White Blood Cell Count 9.14 K/mm3 (4.00-11.30)
[2024-10-13 12:00] LABS: Magnesium, Blood 1.6 mg/dL (1.6-2.4)
[2024-10-13 12:03] LABS: Phosphorus, Blood 1.9 mg/dL (2.5-4.9); Thyroid Stimulating Hormone 1.17 uIU/mL (0.360-4.800)
[2024-10-13] MEDS ORDERED: Potassium Phosphate Dibasic 30 MM in Dextrose 5% 500 ML IV STA (13:32)
[2024-10-13 15:41] VITALS: BP 141/95
[2024-10-13 16:20] LABS: Adenovirus Not Detected (NOT DETECT); Coronavirus 229E Not Detected (NOT DETECT); Coronavirus HKU1 Not Detected (NOT DETECT); Coronavirus NL63 Not Detected (NOT DETECT); Coronavirus OC43 Not Detected (NOT DETECT); Human Metapneumovirus Not Detected (NOT DETECT); Human Rhinovirus/Enterovirus Not Detected (NOT DETECT); Influenza A/2009-H1 Not Detected (NOT DETECT); Influenza A/H1 Not Detected (NOT DETECT); Influenza A/H3 Not Detected (NOT DETECT); Influenza B Not Detected (NOT DETECT); SARS-Cov-2 (COVID-19), BioFire Not Detected (NOT DETECT)
[2024-10-13 16:21] LABS: Bordetella pertussis Not Detected (NOT DETECT); Chlamydophila pneumoniae Not Detected (NOT DETECT); Mycoplasma pneumoniae Not Detected (NOT DETECT); Parainfluenza Virus 1 Not Detected (NOT DETECT); Parainfluenza Virus 2 Not Detected (NOT DETECT); Parainfluenza Virus 3 Not Detected (NOT DETECT); Parainfluenza Virus 4 Not Detected (NOT DETECT); Respiratory Syncytial Virus Not Detected (NOT DETECT)
--- NOTE | 2024-10-13 17:22 | NUR ---
[address] PERES TO NOTIFY HIM THAT PT HAS BEEN SOMNOLANT/UNRESPONSIVE EXCEPT TO PAINFUL STIM PT BARELY MOANS, DOES NOT FOLLOW COMMAND BUT IS PURPOSEFUL TO GRAB AT RN WHEN SUCTIONING. L PUPIL 1MM/R PUPIL 4MM. PT'S [place] MOIST SECRETIONS, WEAK COUGH. SET UP SUCTION AND ASSITED WITH COUGH AND DEEP BREATH, LG AMOUNTS OF CREAMY [place] YELLOW SUCTIONED VIA YANKAUR. PT RR 18-20, SAT'S 91-93%, EXP WHEEZE UPPER-MID LOBES, CALLED RT FOR PRN ALB NEB TX. OTHER VS STABLE, PT CONT WITH LR AT 100ML/HR. ORDER FOR CT OF HEAD/NECK, LABS INCLUDING VBG AND CXR. ALSO AWARE THAT PT UNABLE TO TAKE HIS AM PO MEDS, THUS UNABLE TO GIVE SCHEDUELD METOPROLOL, HR 110 A-FIB. WILL CONT TO ILSA.
--- NOTE | 2024-10-13 17:34 | NUR ---
1530- PT TX TO PCU 2. REPORT CALLED TO RN. NOTIFIED PT'S DAUGHTER OF PT'S TRANSFER. PT'S CONDITION HAS REMAINED UNCHANGED FROM AM AND PT IS STILL SOMNOLANT AND DIFFICULT TO ROUSE. HAS REMAINED SLEEPING ALL SHIFT, NO AWAKENING EXCEPT WITH NOXIOUS STIM. RESP 20, USING SOME ACCESS MUSCLES TO BREATH. MARKED EXP. WHEEZE AND OCC MOIST COUGH. NEEDS ASSIST WITH YANKAUR TO CLEAR SECRETIONS. MOTTELING TO KNEES.
[2024-10-13] MEDS ORDERED: Furosemide 10 MG / ML 2ML Vial IV SCH (18:00)
[2024-10-13] MEDS ORDERED: Warfarin Sodium 1 MG Tab PO SCH (18:00)
--- NOTE | 2024-10-13 18:07 | NUR ---
SHIFT SUMMARY; BROUGHT TO PCU FROM MEDICAL FLOOR AT APPROX 1545. RESPONDS TO PAINFUL STIMULI ONLY. PLACED ON 6L 02 VIA NC SATS IN MID 80'S BUT DIFFICULT TO GET CONSISTANT READINGS. PLACED ON ETC02 FOR BETTER MONITORING. BLOOD PRESSURE STABLE, EXTREMETIES COOL AND CAP REFILL APPROX [address] PERES AT BEDSIDE TO EVALUATE, USES ACCESORY MUSCLES TO BREATH, MOVES SELF ON BED, ABD FIRM AND DISTENDED. PLAN FOR PARACENTESIS TOMORROW. HELD COUMADIN PER DR. PERES. ORAL SUCTIONING WITH MUCOUS SUCTIONED FROM ORAL CAVITY. CAST NOTED ON POSTERIOR TOUNGE, REMOVED WITH ORAL DEBREDMENT SPONGE AND SUCTION. ETCO2 MID 20'S T/O AFTERNOON, DISCUSSED WITH RT, RT RECOMMEDED CONTINUE MONITORING AND WILL CONSIDER BIPAP IF RESP STATUS DECLINES. PANEL SEWER AWARE, WILL REPORT OFF TO SCHEDULING AGENT RN FOR ASSUMPTION OF CARE.
[2024-10-13 20:04] VITALS: BP 130/69
[2024-10-13] MEDS ORDERED: CefTRIAXone Sodium 2,000 MG in NS 100 ML IV SCH (21:00)
[2024-10-13 23:48] VITALS: BP 118/88
[2024-10-14] VITALS (15 sets, daily range): BP systolic 91–140; BP diastolic 57–91
[2024-10-14 03:59] LABS: Base Excess Venous 6.8 mmol/L; Bicarbonate Venous 28.7 mmol/L (24.0-30.0); PCO2 Venous 46.4 mmHg (38-42); pH Blood Venous 7.43 (7.34-7.37)
[2024-10-14 04:23] LABS: BASOPHILS ABSOLUTE AUTO 0.05 K/mm3 (0.00-0.23); BASOPHILS PERCENT AUTO 1 % (0-2); EOSINOPHILS ABSOLUTE AUTO 0.22 K/mm3 (0.00-0.68); EOSINOPHILS PERCENT AUTO 2 % (0-6); Hemoglobin 11.2 g/dL (13.5-17.5); IMMATURE GRAN ABSOLUTE AUTO 0.05 K/mm3 (0.00-0.10); IMMATURE GRAN PERCENT AUTO 1 % (0-1); LYMPHOCYTES ABSOLUTE AUTO 1.54 K/mm3 (0.84-5.20); LYMPHOCYTES PERCENT AUTO 14 % (21-46); MONOCYTES ABSOLUTE AUTO 1.27 K/mm3 (0.16-1.47); MONOCYTES PERCENT AUTO 12 % (4-13); Mean Corpuscular HGB 38.5 pg (26.0-34.0); Mean Corpuscular Volume 110 fL (80-100); Mean Platelet Volume 11.5 fL (9.1-12.4); NEUTROPHILS ABSOLUTE AUTO 7.69 K/mm3 (1.96-9.15); NEUTROPHILS PERCENT AUTO 71 % (41-73); NRBC ABSOLUTE 0.02 K/mm3 (0.00-0.02); NRBC Auto 0.2 /100 WBC (0.0-0.2); Platelet Count 62 K/mm3 (150-400); RDW Coefficient Variation 16.5 % (11.7-14.2); RDW Standard Deviation 66.7 fL (35.1-46.3); Red Blood Cell Count 2.91 M/mm3 (4.30-5.90); White Blood Cell Count 10.82 K/mm3 (4.00-11.30)
[2024-10-14 04:27] LABS: International Normalized Ratio 2.33; Prothrombin Time Results 23.4 Sec (9.7-11.5)
[2024-10-14 04:37] LABS: Albumin, Blood 2.8 g/dL (3.4-5.0); Bilirubin, Total 2.4 mg/dL (0.1-1.0); Bun/Creatinine Ratio 13.5 (12.0-20.0); Calcium, Blood 8.9 mg/dL (8.5-10.1); Creatinine, Blood 1.04 mg/dL (0.60-1.20); Globulin, Blood 2.8 g/dL (2.2-4.0); Magnesium, Blood 1.6 mg/dL (1.6-2.4); Phosphorus, Blood 2.6 mg/dL (2.5-4.9); Potassium, Blood 3.3 mmol/L (3.5-5.5); Total Protein, Blood 5.6 g/dL (6.4-8.2)
--- NOTE | 2024-10-14 06:20 | NUR ---
SHIFT SUMMARY PATIENT CONTINUES TO BE SOMNULENT, OCCASIONALLY OPENING EYES, BUT OTHERWISE ONLY REACTIVE TO PAIN OR DISCOMFORT, NOT FOLLOWING DIRECTIONS. PATIENT IS ON ROOM AIR WITH SPO2 >90%. VITAL SIGNS STABLE. WILL CONTINUE TO MONITOR. CALL LIGHT WITHIN REACH.
[2024-10-14] MEDS ORDERED: Magnesium Sulf 2 GM/Water 50ML 50 ML IV ONE (06:50)
[2024-10-14] MEDS ORDERED: Potassium Chl 10MEQ/Water100ML 100 ML IV SCH (07:30)
--- NOTE | 2024-10-14 08:00 | NUR ---
[place] of care: Restless but somnolent. Moves all extremities but does not follow commands. Moans but does not verbalize otherwise. Opens eyes to painful stimuli. Pupils unequal (baseline per MD notes). In atrial fib up to 120s with stable blood pressures & good pulses throughout. Audible wheezes & coarse lung sounds on auscultation. Very difficult to scrap picker O2 sat but appears to be in low 90s on room air. Very weak cough & does not appear to be protecting airway. Cruz cath patent & secure. Powerglide in place and new PIV placed in LW. Replacing K & Mag per orders. Will continue to closely monitor neuro/resp status in particular.
[2024-10-14] MEDS ORDERED: Thiamine HCl 300 MG in NS 100 ML IV SCH (09:00)
[2024-10-14] MEDS ORDERED: Clindamycin Phosphate 300 MG in NS 50 ML IV SCH (10:34)
[2024-10-14] MEDS ORDERED: PHYTONADIONE IV ONE (10:55)
[2024-10-14] MEDS ORDERED: NS IV ONE (10:55)
[2024-10-14] MEDS ORDERED: NS 250 ML IV PRN (11:00)
[2024-10-14 11:28] LABS: Albumin, Blood 2.8 g/dL (3.4-5.0)
[2024-10-14 12:18] LABS: International Normalized Ratio 2.3; Prothrombin Time Results 23.1 Sec (9.7-11.5)
[2024-10-14 14:13] LABS: Acinetobacter baumannii DNA Not Detected copy/mL (NOT DETECT); Enterobacter cloacae DNA Not Detected copy/mL (NOT DETECT)
[2024-10-14 14:14] LABS: Adenovirus DNA Not Detected (NOT DETECT); CTX-M Resistance Gene Not Detected; Chlamydia pneumonia Not Detected (NOT DETECT); Escherichia coli DNA Not Detected copy/mL (NOT DETECT); Haemophilus influenzae DNA Not Detected copy/mL (NOT DETECT); Human Coronavirus RNA Not Detected (NOT DETECT); Human Metapneumovirus RNA Not Detected (NOT DETECT); IMP Resistance Gene Not Detected; Influenza virus A RNA Not Detected (NOT DETECT); Influenza virus B RNA Not Detected (NOT DETECT); KPC Resistance Gene Not Detected; Klebsiella aerogenes DNA Not Detected copy/mL (NOT DETECT); Klebsiella oxytoca DNA Not Detected copy/mL (NOT DETECT); Klebsiella pneumoniae DNA Not Detected copy/mL (NOT DETECT); Legionella pneumophila Not Detected (NOT DETECT); Moraxella catarrhalis DNA Not Detected copy/mL (NOT DETECT); Mycoplasma pneumoniae Not Detected (NOT DETECT); NDM Resistance Gene Not Detected; Parainfluenza virus RNA Not Detected (NOT DETECT); Proteus sp DNA Not Detected copy/mL (NOT DETECT); Pseudomonas aeruginosa DNA Detected Bin 10^5 copy/mL (NOT DETECT); Respiratory syncytial Vir RNA Not Detected (NOT DETECT); Rhinovirus+Enterovirus RNA Not Detected (NOT DETECT); Serratia marcescens DNA Not Detected copy/mL (NOT DETECT); Staphylococcus aureus DNA Not Detected copy/mL (NOT DETECT); Streptococcus agalactiae DNA Not Detected copy/mL (NOT DETECT); Streptococcus pneumoniae DNA Not Detected copy/mL (NOT DETECT); Streptococcus pyogenes DNA Not Detected copy/mL (NOT DETECT); VIM Resistance Gene Not Detected
--- NOTE | 2024-10-14 15:57 | NUR ---
MET WITH NIMISHA AND HIS SON NIMISHA RAMÍREZ. HIS DAUGHTER KAROL IS THE POA AND HE HAS ANOTHER SON, FELICIA WHO LIVES OUT OF STATE. PATIENT LIVES AT HOME ALONE. FAMILY CHECKS IN ON HIM. WE DISCUSSED POLST. SON REPORTS THAT HIS SISTER HAS A COPY AND WILL TEXT IT TO HIM. PROVIDED THERAPUTIC LISTENING SON RELAYED EVENTS OF THE LAST YEAR. THE PATIENT LOST HIS TWO YEARS AGO. DISCUSSED CASE WITH DIETITIAN, HE RELAYED THAT THE PATIENT HAD RECIEVED A TEXT OF THE POLST. UPDATED DR. PERES, HE WAS OUTSIDE THE ROOM SO HE WILL REVIEW.
[2024-10-14] MEDS ORDERED: Meropenem 1,000 MG in NS 100 ML IV SCH (16:00)
--- NOTE | 2024-10-14 17:25 | NUR ---
End of shift summary: Remains obtunded. Arouses to painful stimuli, opens eyes & localizes pain. Non-verbal. Pupils remain unequal. Remains in AFib in 100-110s. Blood pressures stable. Weaned to 2L O2 via NC. Sats still difficult to obtain but in 95% range. Cruz, powerglide, PIV in place. Discussed sputum cx results with Dr. Vance - pseudomonas. Abx changed to Meropenem. Family discussing plan of care wishes regarding nutrition - they will follow up tomorrow. Await PT/INR results for further plan regarding paracentesis - must have INR below 2 per radioisotope technologist with radiology. Dr. Vance aware. Will continue to monitor. Family updated on plan of care.
[2024-10-14 17:42] LABS: International Normalized Ratio 2.11; Prothrombin Time Results 21.4 Sec (9.7-11.5)
[2024-10-15 04:21] VITALS: BP 138/100
[2024-10-15 04:36] LABS: BASOPHILS ABSOLUTE AUTO 0.06 K/mm3 (0.00-0.23); BASOPHILS PERCENT AUTO 1 % (0-2); EOSINOPHILS ABSOLUTE AUTO 0.31 K/mm3 (0.00-0.68); EOSINOPHILS PERCENT AUTO 3 % (0-6); Hematocrit 30.1 % (37.0-53.0); Hemoglobin 10.4 g/dL (13.5-17.5); IMMATURE GRAN ABSOLUTE AUTO 0.06 K/mm3 (0.00-0.10); IMMATURE GRAN PERCENT AUTO 1 % (0-1); LYMPHOCYTES ABSOLUTE AUTO 1.61 K/mm3 (0.84-5.20); LYMPHOCYTES PERCENT AUTO 17 % (21-46); MONOCYTES ABSOLUTE AUTO 1.16 K/mm3 (0.16-1.47); MONOCYTES PERCENT AUTO 12 % (4-13); Mean Corpuscular HGB 38.2 pg (26.0-34.0); Mean Corpuscular HGB Conc 34.6 g/dL (31.5-36.5); Mean Corpuscular Volume 111 fL (80-100); Mean Platelet Volume 11.3 fL (9.1-12.4); NEUTROPHILS ABSOLUTE AUTO 6.19 K/mm3 (1.96-9.15); NEUTROPHILS PERCENT AUTO 66 % (41-73); NRBC ABSOLUTE 0.02 K/mm3 (0.00-0.02); NRBC Auto 0.2 /100 WBC (0.0-0.2); Platelet Count 57 K/mm3 (150-400); RDW Coefficient Variation 16.5 % (11.7-14.2); RDW Standard Deviation 67.2 fL (35.1-46.3); Red Blood Cell Count 2.72 M/mm3 (4.30-5.90); White Blood Cell Count 9.39 K/mm3 (4.00-11.30)
[2024-10-15 04:41] LABS: International Normalized Ratio 1.84; Prothrombin Time Results 18.8 Sec (9.7-11.5)
[2024-10-15 04:52] LABS: Albumin, Blood 2.9 g/dL (3.4-5.0); Albumin/Globulin Ratio 1.1 (0.8-1.8); Bilirubin, Total 2.8 mg/dL (0.1-1.0); Bun/Creatinine Ratio 10.8 (12.0-20.0); Calcium, Blood 9.2 mg/dL (8.5-10.1); Creatinine, Blood 1.11 mg/dL (0.60-1.20); Globulin, Blood 2.7 g/dL (2.2-4.0); Potassium, Blood 3.5 mmol/L (3.5-5.5); Total Protein, Blood 5.6 g/dL (6.4-8.2)
--- NOTE | 2024-10-15 05:45 | NUR ---
PT REMAINED OBTUNDED THROUGHOUT SHIFT, OPENING EYES SPONANEOUSLY BUT NOT TRACKING WITH HIS EYES. ANSWERED WITH A NOD, A TIME OR TWO BUT NO VERBAL RESPONSES. CONTINUED TO WHEEZE BUT NO OTHER RESPIRATORY DISTRESS NOTED. ATTEMPTED TO SUCTION WITH YAUNKER, BUT PT BIT DOWN ON IT AND REFUSED TO OPEN HIS MOUTH. ORAL CARE ATTEMPTED AND PT REFUSED ALSO. DENIED PAIN WHEN ASKED. REPOSITIONED Q2 HRS AND BRIEF CHECKED EVERY TIME. BM x2. PAIGE REMAINED PATENT W/ CHRIS URINE.
[2024-10-15 07:53] VITALS: BP 131/87
[2024-10-15] MEDS ORDERED: Dextrose 5% 1,000 ML IV SCH (08:40)
[2024-10-15 10:14] LABS: Automated BF WBC Count 0.303 K/mm3 (0-999)
[2024-10-15 10:37] LABS: Glucose, Body Fluid 98 mg/dL
[2024-10-15 10:40] LABS: Triglycerides, Body Fluid 41 mg/dL
[2024-10-15 10:45] LABS: Albumin, Body Fluid 0.8 g/dL
[2024-10-15 10:58] LABS: Lactate Dehydrogenase, Body Fl 72 U/L; RBC Count, Body Fluid 450 /mm3 (0-0)
[2024-10-15 10:59] LABS: Body Fluid WBC Count 303 /mm3 (0-999); Protein, Body Fluid 1.5 g/dL
[2024-10-15 11:35] LABS: pH, Body Fluid 8.2
[2024-10-15 11:36] LABS: Appearance, Body Fluid Hazy (Clear); Color, Body Fluid Yellow (None-Yellow); Total Cell Count, Body Fluid 100
[2024-10-15] MEDS ORDERED: TPN Consult Notification XX ONE (12:30)
--- NOTE | 2024-10-15 13:24 | NUR ---
DISCUSSED CASE WITH PROVIDER, FAMILY IS OPTING FOR LIMITED TREATMENT. THEY WANT TO CONTINUE CURATIVE TREATMENT. CODE STATUS WAS CHANGED TO DNR. PATIENT HAD AN EPISODE LIKE THIS IN THE PAST SO THEY ARE HOPEFUL FOR IMPROVMENT. DISCUSSED CASE WITH DIETITION. PATIENT WILL BE STARTED ON IV NUTRITION, DUE TO THE PATIENTS RISK OF BLEEDING NG ROUTE WILL NOT BE PERSUED. PC WILL CONTINUE TO PROVIDE SUPPORT
[2024-10-15 13:37] LABS: Bun/Creatinine Ratio 11.1 (12.0-20.0); Calcium, Blood 9.1 mg/dL (8.5-10.1); Creatinine, Blood 1.08 mg/dL (0.60-1.20); Potassium, Blood 3.1 mmol/L (3.5-5.5)
[2024-10-15] MEDS ORDERED: Potassium Chloride 40 MEQ in NS 250 ML IV STA (14:14)
[2024-10-15] MEDS ORDERED: Morphine Sulfate 4 MG/1 ML Injection IV PRN (15:20)
[2024-10-15] MEDS ORDERED: PARENTERAL ELECTOLYTES POTASSIUM PHOSPHATE DIBASIC MM MULTIVITAMINS IV SCH (17:00)
[2024-10-15] MEDS ORDERED: [UNRECOGNIZED DRUG - OTHER] IV SCH (17:00)
[2024-10-15] MEDS ORDERED: Lidocaine 4% 1 Patch TOP SCH (17:10)
[2024-10-15 17:27] LABS: HEPATITIS A ANTIBODY, IGM Negative (Negative); HEPATITIS B CORE ANTIBODY, IGM Negative (Negative); HEPATITIS B SURFACE ANTIGEN Negative (Negative); HEPATITIS C AB CIA INTERP Negative (Negative); HEPATITIS C ANTIBODY CIA INDEX 0.04 IV
[2024-10-15 17:58] LABS: CERULOPLASMIN 15 mg/dL (15-30)
[2024-10-15 18:12] VITALS: BP 131/93
--- NOTE | 2024-10-15 18:39 | NUR ---
SHIFT SUMMERY: NEURO: PT REPONDS TO NAUSIOUS STIMULI AND WILL OCASIONALLY OPEN EYES BUT DOES NOT TRACK ANY OBJECTS OR FOLLOW ANY COMMANDS. PT HAS BEEN MOANING OFF AND ON AND HAS SAID ONE OR TWO WORDS TO THIS RN TODAY. PT HAS BEEN MOVING ARMS AND LEGS BUT HAS ONLY BEEN ORIENTED TO SELF. CARDIAC: UNABLE TO ASSESS IF PT HAS HAD ANY CP. PT WOULD NOT TOLERATE A BLOOD PRESSURE FOR 1200 VITALS. PROVIDER AWARE. RESP: PT HAS BEEN ON 2L NC TODAY DUE TO DESAT WHILE SLEEPING. PT HAS BEEN PULLING THE OXYGEN OFF THROUGHOUT THE DAY. MAINTAINING O2 SATS >92%. GI/: PT HAS A PAIGE IN PLACE. INCONTINENT OF BOWEL. DR PERES TALKED WITH FAMILY THIS AM ABOUT PLAN OF CARE. PROVIDER TALKED ABOUT POSSIBLE COMFORT CARE AND FAMILY WOULD LIKE TO CONTINUE TO PROVIDE FULL CARE AND INTERVENTIONS IN HOPES THAT PT WILL GET BETTER. PT CONTINUES A DNR. PT WAS STARTED ON PPN THIS EVENING AND REMAINS NPO DUE TO MENTATION. NO OTHER SIGNIFICANT EVENTS HAPPENED DURING THIS SHIFT.
[2024-10-15 19:53] VITALS: BP 139/85
[2024-10-15 23:54] VITALS: BP 137/91
[2024-10-16 03:30] VITALS: BP 135/87
[2024-10-16 04:44] LABS: BASOPHILS ABSOLUTE AUTO 0.06 K/mm3 (0.00-0.23); BASOPHILS PERCENT AUTO 1 % (0-2); EOSINOPHILS ABSOLUTE AUTO 0.37 K/mm3 (0.00-0.68); EOSINOPHILS PERCENT AUTO 3 % (0-6); Hematocrit 28.4 % (37.0-53.0); Hemoglobin 9.9 g/dL (13.5-17.5); IMMATURE GRAN ABSOLUTE AUTO 0.09 K/mm3 (0.00-0.10); IMMATURE GRAN PERCENT AUTO 1 % (0-1); LYMPHOCYTES ABSOLUTE AUTO 1.18 K/mm3 (0.84-5.20); LYMPHOCYTES PERCENT AUTO 11 % (21-46); MONOCYTES ABSOLUTE AUTO 1.42 K/mm3 (0.16-1.47); MONOCYTES PERCENT AUTO 13 % (4-13); Mean Corpuscular HGB 38.8 pg (26.0-34.0); Mean Corpuscular HGB Conc 34.9 g/dL (31.5-36.5); Mean Corpuscular Volume 111 fL (80-100); Mean Platelet Volume 12.1 fL (9.1-12.4); NEUTROPHILS ABSOLUTE AUTO 7.64 K/mm3 (1.96-9.15); NEUTROPHILS PERCENT AUTO 71 % (41-73); NRBC ABSOLUTE 0.06 K/mm3 (0.00-0.02); NRBC Auto 0.6 /100 WBC (0.0-0.2); Platelet Count 57 K/mm3 (150-400); RDW Coefficient Variation 16.3 % (11.7-14.2); RDW Standard Deviation 66.9 fL (35.1-46.3); Red Blood Cell Count 2.55 M/mm3 (4.30-5.90); White Blood Cell Count 10.76 K/mm3 (4.00-11.30)
--- NOTE | 2024-10-16 05:01 | NUR ---
SHIFT SUMMARY THIS RN ASSUMED CARE OF PATIENT AT 1900. NO CHANGES TO NEURO STATUS SINCE PREVIOUS SHIFT. PT CONTINUES TO BE RESTLESS AND RESPONDS TO VERBAL STIMULI WITH MOANING. PT DOES NOT FOLLOW DIRECTIONS. PT WILL OCCASIONALLY SAY "HEY" OR "HUH" WHEN THIS RN SPEAKS TO HIM, BUT NO OTHER PURPOSEFUL VERBAL COMMUNICATION NOTED. PT DOES NOT TRACK THIS RN WITH EYES. PT FREQUENTLY ROLLING SELF IN BED AND REMOVING O2 FROM NOSE. MOVING ALL EXTREMETIES. BP STABLE. ON 2-3L NC TO MAINTAIN SPO2. AFIB WITH HR 90-110'S. EXPIRATORY WHEEZING NOTED T/O. PPN INFUSING PER EMAR. BED IN LOWEST POSITION. BED ALARM ON. CALL LIGHT WITHIN REACH. THIS RN WILL REPORT TO ONCOMING DAYSHIFT RN.
[2024-10-16 05:41] LABS: Anion Gap 9 mmol/L (3-11); Blood Urea Nitrogen 12 mg/dL (8-24); Bun/Creatinine Ratio 11.8 (12.0-20.0); CO2, Blood 31 mmol/L (21-32); Calcium, Blood 8.8 mg/dL (8.5-10.1); Chloride, Blood 109 mmol/L (98-108); Creatinine, Blood 1.02 mg/dL (0.60-1.20); Glomerular Filtration Rate 72 (60-); Glucose, Blood 126 mg/dL (70-99); Magnesium, Blood 1.8 mg/dL (1.6-2.4); Phosphorus, Blood 1.7 mg/dL (2.5-4.9); Potassium, Blood 3.7 mmol/L (3.5-5.5); Sodium, Blood 145 mmol/L (136-145); Triglycerides 110 mg/dL (30-160)
[2024-10-16] MEDS ORDERED: Potassium Phosphate Dibasic 15 MM in Dextrose 5% 250 ML IV STA (08:56)
[2024-10-16] MEDS ORDERED: Enoxaparin 100 MG/ML 1ML SYR SC SCH (09:00)
[2024-10-16 12:33] VITALS: BP 108/75
--- NOTE | 2024-10-16 13:34 | NUR ---
Spiritual Care Callback. Pt. is mostly non responsive. Son is at bedside and welcomes my visit. Giovanni verbalized that the Pt. is a practiciing sikh and worships at [facility] in [place]. Facilitated a life review and listened with empathy and care. The family was requesting to have a local sr community manager come and give an "annoiniting of the sick." This alum plant operator contacted the local Mva Reactor Operator answering service, and left a message for the Mva Reactor Operator to contact the family at son son's number...[phone]. This alum plant operator circled back and updated the nursing staff and the Pts. son who is also named Abhijeet. The son verbalized gratitudfe fore the spiritual care visit.
--- NOTE | 2024-10-16 16:24 | NUR ---
MET WITH PATIENTS DAUGHTER KAROL. SON NIMISHA IS AT BEDSIDE WELL. PROVIDED THERAPUTIC LISTENING, KAROL AND HER HAVE BEEN ILL RECENTLY. SHE REPORTS THAT SHE WOULD LIKE TO SEE HOW THE WEEKEND GOES AND REVISIT THE IDEA OF HOSPICE. SHE WOULD LIKE HER FATHER TO RETURN HOME, HE HAS A CAT, AND FAMILLIAR SURROUNDINGS WOULD BE BEST FOR HIM. PC WILL CONTINUE TO PROVIDE SUPPORT
[2024-10-16 17:45] VITALS: BP 121/78
[2024-10-16] MEDS ORDERED: Ampicillin Sod/Sulbactam Sod 3 GM in NS 100 ML IV SCH (18:00)
[2024-10-16] MEDS ORDERED: Folic Acid 1 MG in NS 50 ML IV SCH (18:00)
--- NOTE | 2024-10-16 18:05 | NUR ---
SHIFT SUMMERY: NEURO: NO CHANGES SINCE MORNING ASSESSMENT. PT STILL NOT FOLLOWING COMMANDS, TRACKING, AND ONLY RESPONSIVE TO NOXIOUS STIMULI. PROVIDER AWARE OF PT STATUS. CARDIAC: ON CONTINUOUS TELEMETRY MONITORING. UNABLE TO ASSESS FOR CP, PRESSURE OR TIGHTNESS. VSS. MAP >65 THROUGHOUT SHIFT. PT TACHY OFF AND ON THAT CORRELATES WITH RESTLESSNESS IN BED ASSUMED TO BE FROM PAIN PER FAMILY. FAMILY STATES PT HAS CHRONIC BACK PAIN AND TAKES MEDS AT HOME FOR IT. TACHYCARDIA AND RESTLESSNESS RESOLVES WITH MORPHINE. RESP: PT ON 2L NC FOR DESAT WHILE SLEEPING. PT RIPPING O2 CANULA OFF THROUGHOUT DAY. GI/: PAIGE IN PLACE DRAINING CHRIS/ BLOOD COLORED URINE. PROVIDER AWARE. PPN CONTINUES TO INFUSE. PALLIATIVE CARE CAME AND TALKED WITH FAMILY TODAY. FAMILY STATED THAT IF PTS STATUS HAS NOT IMPROVED ON OR FRIDAY THEY MIGHT CONSIDER HOSPICE. FAMILY REQUESTED A SALVADOR. JESI CAME IN TO SEE FAMILY. FAMILY REQUESTED A ENVIRONMENTAL HEALTH AND SAFETY LEADER TO COME TO THE HOSPITAL. JESI SAID HE WILL BE HERE TONIGHT. NO OTHER SIGNIFICANT EVENTS LINES: PG TO STEFFANY, 20G IV TO LWR. BOTH PATENT. NO OTHER SIGNIFICANT EVVENTS HAPPENED DURING THIS SHIFT. WILL CONTINUE TO CARE FOR PT TILL END OF SHIFT.
[2024-10-16 20:52] VITALS: BP 113/66
[2024-10-17] VITALS (13 sets, daily range): BP systolic 118–158; BP diastolic 77–111
[2024-10-17 04:57] LABS: BASOPHILS ABSOLUTE AUTO 0.07 K/mm3 (0.00-0.23); BASOPHILS PERCENT AUTO 1 % (0-2); EOSINOPHILS PERCENT AUTO 4 % (0-6); Hematocrit 31.2 % (37.0-53.0); Hemoglobin 10.5 g/dL (13.5-17.5); IMMATURE GRAN ABSOLUTE AUTO 0.15 K/mm3 (0.00-0.10); IMMATURE GRAN PERCENT AUTO 1 % (0-1); LYMPHOCYTES ABSOLUTE AUTO 1.89 K/mm3 (0.84-5.20); LYMPHOCYTES PERCENT AUTO 15 % (21-46); MONOCYTES ABSOLUTE AUTO 1.47 K/mm3 (0.16-1.47); MONOCYTES PERCENT AUTO 12 % (4-13); Mean Corpuscular HGB 38.7 pg (26.0-34.0); Mean Corpuscular HGB Conc 33.7 g/dL (31.5-36.5); Mean Corpuscular Volume 115 fL (80-100); Mean Platelet Volume 12.3 fL (9.1-12.4); NEUTROPHILS PERCENT AUTO 67 % (41-73); NRBC ABSOLUTE 0.04 K/mm3 (0.00-0.02); NRBC Auto 0.3 /100 WBC (0.0-0.2); Platelet Count 54 K/mm3 (150-400); RDW Coefficient Variation 16.5 % (11.7-14.2); RDW Standard Deviation 70.1 fL (35.1-46.3); Red Blood Cell Count 2.71 M/mm3 (4.30-5.90); White Blood Cell Count 12.28 K/mm3 (4.00-11.30)
--- NOTE | 2024-10-17 05:06 | NUR ---
SHIFT SUMMARY THIS RN ASSUMED CARE OF PATIENT AT 1900. NO ACUTE CHANGES OVERNIGHT. NO CHANGES TO NEURO OVERNIGHT. SEE ASSESSMENT. REPOSITIONING Q2HRS AND PRN TO ASSIST WITH PT COMFORT. MEDICATING PER EMAR FOR PAIN. PT APPEARS RESTLESS AT TIMES. WHEEZING NOTED T/O. LABORED BREATHING NOTED WITH USE OF ACCESSORY MUSCLES. AFIB WITH HR 90-100'S. BP STABLE. NEEDING 2-3L VIA NC TO MAINTAIN SPO2. PAIGE CATHETER PATENT AND DRAINING CHRIS/RED URINE TO GRAVITY. PPN INFUSING PER EMAR. BED IN LOWEST POSITION AND CALL LIGHT WITHIN REACH. THIS RN WILL REPORT TO ONCOMING DAYSHIFT RN.
[2024-10-17 05:17] LABS: Bun/Creatinine Ratio 17.5 (12.0-20.0); Calcium, Blood 9.1 mg/dL (8.5-10.1); Creatinine, Blood 1.03 mg/dL (0.60-1.20); Magnesium, Blood 2.3 mg/dL (1.6-2.4); Phosphorus, Blood 1.8 mg/dL (2.5-4.9); Potassium, Blood 4.3 mmol/L (3.5-5.5)
[2024-10-17] MEDS ORDERED: Potassium Phosphate Dibasic 20 MM in Dextrose 5% 500 ML IV STA (10:10)
[2024-10-17] MEDS ORDERED: Ketorolac Tromethamine 30mg Vial IV PRN (10:45)
[2024-10-17] MEDS ORDERED: Morphine Sulfate 4 MG/1 ML Injection IV PRN ×2 (10:45→15:30)
[2024-10-17] MEDS ORDERED: Furosemide 10 MG / ML 2ML Vial IV SCH (11:00)
[2024-10-17] MEDS ORDERED: Hydrocortisone Sod Succinate 100 MG Vial IV SCH (12:00)
[2024-10-17 12:33] LABS: Base Excess Venous 5.6 mmol/L; Bicarbonate Venous 28.6 mmol/L (24.0-30.0); PCO2 Venous 43.6 mmHg (38-42); pH Blood Venous 7.44 (7.34-7.37)
--- NOTE | 2024-10-17 18:59 | NUR ---
SHIFT SUMMERY: NEURO: PT HAS BECOME MORE RESTLESS SINCE THIS AM. PT ROLLING AROUND IN BED. PULLING ON PAIGE AND LINES. PT PULLED 2ND IV. PT RESPONDING TO VERBAL STIMULI OFF AND ON ALONG WITH A BRIED MOMENT OF TRACKING. WILL OCASSIONALLY SAY "HI" OR "HEY" WHEN THIS RN SAYS HIS NAME, BUT THEY DOES NOT SAY ANYTHING ELSE AFTER AND CLOSES HIS EYES. CLINICAL SITTER BROUGHT TO BEDSIDE TO ENSURE SAFETY OF PT, CORDS AND PAIGE. PT NOT TOLERATING ANY FORM OF MONITORING. PT TRANSFERED TO ICU FOR CLOSER OBSERVATION DUE TO INCREASED AGITATION AND RESTLESSNESS. CARDIAC: UNABLE TO ASSESS FOR CP. PT NOT KEEPING TELE MONITOR ON. RESP: PT WILL NOT KEEP O2 ON. PT IN LOW 90'S WHEN SPOT CHECKED. GI/: PAIGE IN PLACE DRAINING CHRIS/ BLOOD COLORED URINE. PROVIDER AWARE. PT PLACED IN A RUTH ANN VEST AT APPROX 1615 TO PROTECT PT, LINES, AND CORDS. PT TRANSFERED TO ICU 2 AT APPROX 1807. BRANDON Mendez RN TO ASSUME CARE OF PT.
--- NOTE | 2024-10-17 19:10 | NUR ---
TRANSFER TO ICU PT ARRIVED TO ICU ROOM 2 FROM PCU 2. MOVED TO ICU BED VIA SLIDER SHEET. PT ALERT, CONTINUOUSLY MOVING ALL EXTREMITIES, VERY DIFFICULT TO KEEP CALM, ROLLING IN BED, PULLING AT LINES, NOT FOLLOWING COMMANDS, NO VERBAL RESPONSE. RUTH ANN VEST IN PLACE. PAIGE DRAINING YELLOW URINE. SITTER AT BEDSIDE.
[2024-10-18] VITALS (24 sets, daily range): BP systolic 100–159; BP diastolic 59–136
[2024-10-18 03:19] LABS: Base Excess Venous 8.1 mmol/L; Bicarbonate Venous 30.9 mmol/L (24.0-30.0); PCO2 Venous 43.2 mmHg (38-42); pH Blood Venous 7.47 (7.34-7.37)
[2024-10-18 03:35] LABS: BASOPHILS ABSOLUTE AUTO 0.02 K/mm3 (0.00-0.23); BASOPHILS PERCENT AUTO 0 % (0-2); EOSINOPHILS ABSOLUTE AUTO 0.01 K/mm3 (0.00-0.68); EOSINOPHILS PERCENT AUTO 0 % (0-6); Hematocrit 31.1 % (37.0-53.0); Hemoglobin 10.7 g/dL (13.5-17.5); IMMATURE GRAN ABSOLUTE AUTO 0.09 K/mm3 (0.00-0.10); IMMATURE GRAN PERCENT AUTO 1 % (0-1); LYMPHOCYTES ABSOLUTE AUTO 0.96 K/mm3 (0.84-5.20); LYMPHOCYTES PERCENT AUTO 8 % (21-46); MONOCYTES ABSOLUTE AUTO 1.05 K/mm3 (0.16-1.47); MONOCYTES PERCENT AUTO 9 % (4-13); Mean Corpuscular HGB 38.4 pg (26.0-34.0); Mean Corpuscular HGB Conc 34.4 g/dL (31.5-36.5); Mean Corpuscular Volume 112 fL (80-100); Mean Platelet Volume 12.6 fL (9.1-12.4); NEUTROPHILS ABSOLUTE AUTO 10.15 K/mm3 (1.96-9.15); NEUTROPHILS PERCENT AUTO 83 % (41-73); NRBC ABSOLUTE 0.04 K/mm3 (0.00-0.02); NRBC Auto 0.3 /100 WBC (0.0-0.2); Platelet Count 64 K/mm3 (150-400); RDW Coefficient Variation 15.9 % (11.7-14.2); RDW Standard Deviation 66.1 fL (35.1-46.3); Red Blood Cell Count 2.79 M/mm3 (4.30-5.90); White Blood Cell Count 12.28 K/mm3 (4.00-11.30)
[2024-10-18 03:49] LABS: Calcium, Blood 9.5 mg/dL (8.5-10.1); Creatinine, Blood 0.96 mg/dL (0.60-1.20); Magnesium, Blood 2.2 mg/dL (1.6-2.4); Phosphorus, Blood 2.8 mg/dL (2.5-4.9); Potassium, Blood 4.9 mmol/L (3.5-5.5)
[2024-10-18] MEDS ORDERED: NS 100 ML IV ONE (05:39)
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
--- NOTE | 2024-10-18 18:00 | NUR ---
SHIFT SUMMARY SITTER REMAINS AT BEDSIDE TO MONITOR LINES/ CORDS. PT ALERT TO SELF, NOT FOLLOWING COMMANDS, INTERMITTENTLY REDIRECTABLE. BEE, TURNING SELF IN BED, NO THRASHING IN BED TODAY. REMAINS IN RUTH ANN DUE TO FREQUENT TURNS/ROLLING OVER, HIGH RISK TO PULL OUT ONLY IV ACCESS c NUTRITION INFUSING. RESPONDED X 1 TO THIS NURSE WHEN ASKED HOW HE IS, PT RESPONDED "WHAT", NO FOLLOW UP RESPONSE. PT DID TOLERATE ORAL CARE WITH DENTAL HYGENTIST AFTER MEDICATING WITH PRN PAIN MEDS. CARDIAC LEADS OFF T/O DAY DUE TO PATIENTS TURNING, UNABLE TO ACCURATE ECG, ALARMING CONTINOUSLY. PAIGE CATH PATENT, DRAINING YELLOW URINE. NO BM. FAMIY UPDATED AT BEDSIDE T/O DAY. PT TOLERATED BEDBATH, NO AGGRESSION TO STAFF.
--- NOTE | 2024-10-18 20:56 | NUR ---
UPDATE EKG MONITORING WAS OFF AT BEGINNING OF SHIFT. REPLACED LEADS AND STICKERS AND STILL NO TRACING OF 5 LEAD. HR 99 O2 98% AND RR 17. CHARGE NURSE AWARE.
[2024-10-19] VITALS (8 sets, daily range): BP systolic 111–139; BP diastolic 60–103
[2024-10-19] MEDS ORDERED: Lactated Ringer's 1,000 ML IV ONE (01:50)
[2024-10-19] MEDS ORDERED: Lactated Ringer's 1,000 ML IV SCH (01:50)
[2024-10-19 03:34] LABS: BASOPHILS ABSOLUTE AUTO 0.01 K/mm3 (0.00-0.23); BASOPHILS PERCENT AUTO 0 % (0-2); EOSINOPHILS ABSOLUTE AUTO 0.01 K/mm3 (0.00-0.68); EOSINOPHILS PERCENT AUTO 0 % (0-6); Hematocrit 30.5 % (37.0-53.0); Hemoglobin 10.5 g/dL (13.5-17.5); IMMATURE GRAN ABSOLUTE AUTO 0.13 K/mm3 (0.00-0.10); IMMATURE GRAN PERCENT AUTO 1 % (0-1); LYMPHOCYTES PERCENT AUTO 5 % (21-46); MONOCYTES PERCENT AUTO 9 % (4-13); Mean Corpuscular HGB 38.5 pg (26.0-34.0); Mean Corpuscular HGB Conc 34.4 g/dL (31.5-36.5); Mean Corpuscular Volume 112 fL (80-100); Mean Platelet Volume 12.7 fL (9.1-12.4); NEUTROPHILS ABSOLUTE AUTO 14.41 K/mm3 (1.96-9.15); NEUTROPHILS PERCENT AUTO 85 % (41-73); NRBC ABSOLUTE 0.05 K/mm3 (0.00-0.02); NRBC Auto 0.3 /100 WBC (0.0-0.2); Platelet Count 74 K/mm3 (150-400); RDW Coefficient Variation 16.1 % (11.7-14.2); RDW Standard Deviation 65.1 fL (35.1-46.3); Red Blood Cell Count 2.73 M/mm3 (4.30-5.90); White Blood Cell Count 16.86 K/mm3 (4.00-11.30)
[2024-10-19 03:56] LABS: Albumin, Blood 2.3 g/dL (3.4-5.0); Albumin/Globulin Ratio 0.7 (0.8-1.8); Bilirubin, Total 2.2 mg/dL (0.1-1.0); Bun/Creatinine Ratio 34.8 (12.0-20.0); Calcium, Blood 9.3 mg/dL (8.5-10.1); Creatinine, Blood 0.98 mg/dL (0.60-1.20); Globulin, Blood 3.2 g/dL (2.2-4.0); Potassium, Blood 4.8 mmol/L (3.5-5.5); Total Protein, Blood 5.5 g/dL (6.4-8.2)
--- NOTE | 2024-10-19 06:15 | NUR ---
SHIFT SUMMARY PATIENT SLEPT A GOOD 3 HOURS ON SHIFT. THE REST OF TIEM MOVING ARMS AND UPPER BODY FROM SIDE TO SIDE. PATIENT DOES RESPONSED TO NAME WHEN NURSE CALLS IT WITH A YES. ANY OTHER QUESTIONS NO RESPONSE BUT DOES OPEN EYES.[ATIENT VERY RESTLESS NURSE GAVE PAIN MEDS X2. NURSE CALLED DR. DHALIWAL AND GAVE A BOLUS OF 500ML OF LR AND STARTED LR 100MLS/HR SINCE PATIENT IS NPO AND ONLY GETTING PPN 105MLS/HR. LUNGS BILATERALLY CLEAR, SBP 110-120'S, HR 90-100'S, O2 SATS 90-96%. PATIENT MOVES AND THE EKG WILL NOT READ [facility] CHARGE NURSE AWARE. CALL LIGHT WITHIN REACH
[2024-10-19] MEDS ORDERED: Furosemide 10 MG / ML 2ML Vial IV SCH (14:25)
--- NOTE | 2024-10-19 16:17 | NUR ---
PT REMAINS DROWSY/LETHARGIC WITH AMS. ORIENTED TO SELF ONLY, WITH MINIMAL VERBAL INTENTION. PUPILS UNEQUAL, R 3 SLUGGISH, L 2 SLUGGISH. TMAX 97.7. AFIB 80S-100S, BP WITHIN PARAMETERS. FLUID BALANCE POSITIVE AROUND 3L, PT RECEIVED AN ADDITIONAL DOSE OF 20MG LASIX WITH A THIRD ORDERED FOR 2300. WHEEZING AND CRACKLES AUDIBLE. PRN BREATHING TXS GIVEN BY RT. PT REMAINS ON RA, O2 SAT 94%. PPN INFUSING. Q6 BGS. ABD DISTENTION, FIRM, GUARDING. PAIGE CATHETER TO GRAVITY WITH BLOODY/RED URINE. GENERALIZED ECCHYMOSIS, PETECHIAE, SKIN TEARS. PIVX2, MIDLINE X1. AWAITING TX TO PCU. FAMILY AT BEDSIDE AND UPDATED. CT HEAD ORDERED, AWAITING CT CALL FOR AVAILABILITY.
[2024-10-19] MEDS ORDERED: NS 100 ML IV ONE (17:49)
--- NOTE | 2024-10-19 20:30 | NUR ---
ASSUMED CARE OF PATIENT HE IS ALERT BUT ORIENTED TO NONE. SP02 97% ON RA. HR 100s PER PULSE OX, UNABLE TO GET ACCURATE TELE READING. BP STABLE. PAIGE PATENT AND DRAINING BLOODY URINE TO GRAVITY. REPORT TO SAUSAGE MAKER. PATIENT TO MOVE TO PCU 9. FAMILY NOTIFIED OF PATIENT BEING MOVED.
[2024-10-20] VITALS: BP 175/88
[2024-10-20 04:00] VITALS: BP 163/82
[2024-10-20 06:14] LABS: BASOPHILS ABSOLUTE AUTO 0.03 K/mm3 (0.00-0.23); BASOPHILS PERCENT AUTO 0 % (0-2); EOSINOPHILS PERCENT AUTO 0 % (0-6); Hematocrit 30.4 % (37.0-53.0); Hemoglobin 10.6 g/dL (13.5-17.5); IMMATURE GRAN ABSOLUTE AUTO 0.24 K/mm3 (0.00-0.10); IMMATURE GRAN PERCENT AUTO 2 % (0-1); LYMPHOCYTES ABSOLUTE AUTO 0.85 K/mm3 (0.84-5.20); LYMPHOCYTES PERCENT AUTO 5 % (21-46); MONOCYTES ABSOLUTE AUTO 1.38 K/mm3 (0.16-1.47); MONOCYTES PERCENT AUTO 9 % (4-13); Mean Corpuscular HGB Conc 34.9 g/dL (31.5-36.5); Mean Corpuscular Volume 112 fL (80-100); Mean Platelet Volume 12.8 fL (9.1-12.4); NEUTROPHILS ABSOLUTE AUTO 13.63 K/mm3 (1.96-9.15); NEUTROPHILS PERCENT AUTO 84 % (41-73); NRBC ABSOLUTE 0.03 K/mm3 (0.00-0.02); NRBC Auto 0.2 /100 WBC (0.0-0.2); Platelet Count 87 K/mm3 (150-400); RDW Coefficient Variation 16.3 % (11.7-14.2); RDW Standard Deviation 65.5 fL (35.1-46.3); Red Blood Cell Count 2.72 M/mm3 (4.30-5.90); White Blood Cell Count 16.13 K/mm3 (4.00-11.30)
[2024-10-20 07:12] LABS: Albumin, Blood 2.3 g/dL (3.4-5.0); Albumin/Globulin Ratio 0.7 (0.8-1.8); Bilirubin, Total 2.3 mg/dL (0.1-1.0); Bun/Creatinine Ratio 38.2 (12.0-20.0); Calcium, Blood 9.3 mg/dL (8.5-10.1); Creatinine, Blood 1.02 mg/dL (0.60-1.20); Globulin, Blood 3.4 g/dL (2.2-4.0); Magnesium, Blood 2.1 mg/dL (1.6-2.4); Potassium, Blood 4.5 mmol/L (3.5-5.5); Total Protein, Blood 5.7 g/dL (6.4-8.2)
[2024-10-20] MEDS ORDERED: Furosemide 10 MG/ML 4ML Vial IV SCH (09:00)
[2024-10-20 09:52] VITALS: BP 135/68
[2024-10-20] MEDS ORDERED: TPN Consult Notification XX ONE (12:40)
[2024-10-20 13:06] LABS: Bun/Creatinine Ratio 43.8 (12.0-20.0); Calcium, Blood 9.4 mg/dL (8.5-10.1); Creatinine, Blood 0.98 mg/dL (0.60-1.20); Potassium, Blood 4.4 mmol/L (3.5-5.5)
[2024-10-20] MEDS ORDERED: LORazepam 1 MG Tab PO PRN (14:45)
[2024-10-20 15:27] LABS: Base Excess Venous 8.7 mmol/L; Bicarbonate Venous 31.8 mmol/L (24.0-30.0); PCO2 Venous 37.3 mmHg (38-42)
[2024-10-20 15:28] LABS: pH Blood Venous 7.53 (7.34-7.37)
[2024-10-20 15:56] LABS: Bun/Creatinine Ratio 43.1 (12.0-20.0); Calcium, Blood 9.1 mg/dL (8.5-10.1); Creatinine, Blood 1.02 mg/dL (0.60-1.20); Magnesium, Blood 1.9 mg/dL (1.6-2.4); Phosphorus, Blood 3.6 mg/dL (2.5-4.9); Potassium, Blood 4.4 mmol/L (3.5-5.5)
[2024-10-20] MEDS ORDERED: PARENTERAL ELECTOLYTES POTASSIUM PHOSPHATE DIBASIC MM MULTIVITAMINS IV SCH (17:00)
[2024-10-20] MEDS ORDERED: [UNRECOGNIZED DRUG - OTHER] IV SCH (17:00)
[2024-10-20 17:19] VITALS: BP 153/83
--- NOTE | 2024-10-20 17:48 | NUR ---
SHIFT SUMMERY: NEURO: NO ACUTE NEURO CHANGES. SEE SHIFT ASSESSMENT. CARDIAC: PT RESTLESS THROUGHOUT DAY. TACHY OFF AND ON. UNABLE TO ASSESS FOR CP. RESP: NO ACUTE CHANGES. PT STILL NOT TOLERATING O2 CANULA. GI/: PAIGE IN PLACE. DRAINING CHRIS URINE WITH OCCASIONAL BLOOD IN IT. PT MADE MEDICAL STATUS. NO SIGNIFICANT EVENTS HAPPENED DURING THIS SHIFT. WILL CONTINUE TO CARE FOR PT TILL END OF SHIFT.
--- NOTE | 2024-10-20 18:35 | NUR ---
TRANSFER TO MEDICAL FLOOR: REPORT CALLED TO JADE WEAVER. PT TRANSPORTED TO ROOM 351 [facility]IA [facility] BED BY MANAGER RAIL. BELONGINGS COLLECTED AND SENT WITH PT. FAMILY CALLED AND NOTIFIED.
[2024-10-20 18:49] VITALS: BP 107/77
--- NOTE | 2024-10-20 19:22 | NUR ---
TRANSFER NOTE PATIENT TRANSFERRED TO [facility] 351 THIS EVENING AT SHIFT CHANGE. PATIENT ARRIVED TO ROOM AT 1842, IV ANTIBIOTICS ADMINISTERED UPON ARRIVAL. PATIENT REPONDING TO VERBAL STIMULI BY MOANING, NO COMPREHENSIBLE WORDS SPOKEN. PATIENT RESTLESS. APPLIED 2 LPM SUPPLEMENTAL OXYGEN VIA NASAL CANNULA FOR SPO2 86% UPON ARRIVAL. PURPLE BRUISING TO ENTIRETY OF PATIENT'S CHEST. SCATTERED BRUISING, SCABS, AND SKIN TEARS TO BILATERAL UPPER EXTREMITIES. CONTACT PRECAUSTIONS IN PLACE. PPN RUNNING PER ORDERS. PAIGE IN PLACE, DRAINING RED TINGED URINE. NO OTHER CONCERNS AT THIS TIME. REPORT GIVEN TO SENIOR STACK ENGINEER RN.
[2024-10-20 20:52] VITALS: BP 150/86
--- NOTE | 2024-10-20 22:27 | NUR ---
Patient had been bladder scanned for a large amount about 981 and 1230 cc Patient mathew cath bag was just emptied of 450 light red urine. Patient mathew cath was irrigated with sterile saline via syringe 5 times. One very small clot was removed. There is no difficulty irrigating or removing fluid from catheter. Irrigant return is now sl pink. Pt has hx of acities. Had about 75 cc of urine in bag before irrigation. Will monitor for continued urine output and pt discomfort. Report to shift MARIAELENA Blanco.
--- NOTE | 2024-10-21 01:15 | NUR ---
SPOKE TO DR. MARTINI - UPDATED THAT PAIGE DRAINAGE IS RED/PINK - AND PAIGE HAS BEEN IRRIGATED MANUALLY X2 WITH APPX 100 CC OUTPUT. ALSO REPORTED THAT WE DID A BLADDER SCAN EARLIER WHICH SHOWED 850CC, HOWEVER PT ALSO HAS ASCITES. ORDER RECEIVED FOR CONTINUOUS BLADDER IRRIGATION.
[2024-10-21 03:05] VITALS: BP 126/75
--- NOTE | 2024-10-21 03:10 | NUR ---
I UPDATED DR. MARTINI THAT PT'S URINE HAS CLEARED - OKAY TO STOP TO CBI - REVIEWED THAT PT HAD SOME SMALL BLOOD CLOTS OUT - URINE CURRENTLY CLEAR YELLOW. CBI TURNED OFF - [address] - BUT IRRIGATION TURNED OFF.
[2024-10-21 05:50] LABS: BASOPHILS ABSOLUTE AUTO 0.04 K/mm3 (0.00-0.23); BASOPHILS PERCENT AUTO 0 % (0-2); EOSINOPHILS PERCENT AUTO 0 % (0-6); Hematocrit 32.9 % (37.0-53.0); Hemoglobin 11.2 g/dL (13.5-17.5); IMMATURE GRAN PERCENT AUTO 2 % (0-1); LYMPHOCYTES PERCENT AUTO 7 % (21-46); MONOCYTES ABSOLUTE AUTO 1.38 K/mm3 (0.16-1.47); MONOCYTES PERCENT AUTO 8 % (4-13); Mean Corpuscular Volume 112 fL (80-100); Mean Platelet Volume 12.9 fL (9.1-12.4); NEUTROPHILS ABSOLUTE AUTO 13.92 K/mm3 (1.96-9.15); NEUTROPHILS PERCENT AUTO 83 % (41-73); NRBC ABSOLUTE 0.03 K/mm3 (0.00-0.02); NRBC Auto 0.2 /100 WBC (0.0-0.2); Platelet Count 100 K/mm3 (150-400); RDW Coefficient Variation 16.3 % (11.7-14.2); RDW Standard Deviation 65.3 fL (35.1-46.3); Red Blood Cell Count 2.95 M/mm3 (4.30-5.90); White Blood Cell Count 16.74 K/mm3 (4.00-11.30)
[2024-10-21] MEDS ORDERED: LORazepam 2 MG/ML 1ML Injection IV ONE (06:00)
--- NOTE | 2024-10-21 06:18 | NUR ---
SHIFT SUMMARY - PT BECAME AGIGATED THIS AM - PULLING AT HIS LINES. PT ALSO HAS AUDIBLE WHEEZES - CALLED RT FOR BREATHING TREATMENT - SEE EMAR. CALLED AND REPORTED PT AGITATED- PT NPO - ATIVAN PO ON EMAR - NEW ORDER RECEIVED FOR IV ATIVAN - GIVEN - SEE EMAR. PT IS CURRENTLY SLEEPING. 2L 02 ON WITH CONTINUOUS BIOX IN PLACE. PT CONTINUES IN AFIB ON TELE MONITOR. URINE HAS CHANGED FROM CLEAR TO A LIGHT PINK - CBI REMAINS OFF - WILL REPORT OFF TO ONCOMING SHIFT - PAIGE IS DRAINING TO GRAVITY. CALL LIGHT WITHIN REACH. BED IN LOW POSITION. BED ALARM IS ON FOR PT SAFETY.
[2024-10-21 06:29] LABS: Albumin, Blood 2.4 g/dL (3.4-5.0); Albumin/Globulin Ratio 0.7 (0.8-1.8); Bilirubin, Total 2.5 mg/dL (0.1-1.0); Bun/Creatinine Ratio 43.7 (12.0-20.0); Calcium, Blood 9.4 mg/dL (8.5-10.1); Creatinine, Blood 1.03 mg/dL (0.60-1.20); Globulin, Blood 3.6 g/dL (2.2-4.0); Magnesium, Blood 2.4 mg/dL (1.6-2.4); Phosphorus, Blood 3.2 mg/dL (2.5-4.9); Potassium, Blood 4.3 mmol/L (3.5-5.5)
[2024-10-21 07:18] VITALS: BP 135/103
[2024-10-21] MEDS ORDERED: Acetaminophen 650 MG Supp PR PRN (09:05)
[2024-10-21] MEDS ORDERED: Atropine Sulfate 1% Opth Soln 2ML BTL SL PRN (09:10)
[2024-10-21] MEDS ORDERED: Ondansetron HCl 2 MG / ML 2ML Vial IV PRN (09:10)
[2024-10-21] MEDS ORDERED: Scopolamine Hydrobromide Patch TOP PRN (09:10)
[2024-10-21] MEDS ORDERED: Promethazine HCl 25 MG Supp PR PRN (09:10)
[2024-10-21] MEDS ORDERED: Morphine Sulfate 20 MG/1ML 1 ML Oral Syringe SL PRN (09:15)
--- NOTE | 2024-10-21 13:46 | NUR ---
Spiritual Care Family Support Metwith two of the Pts. sons in the 3rd floor waitingf are. Abhijeet Thornton (one of the sons) waved me over and verbalized that the family will be taking the Pt. home on hospice. Abhijeet Thornton varbalized gratitude for the spiritual care support over the weekend. Will remain available to the Pt. and family until discharge.
--- NOTE | 2024-10-21 14:07 | NUR ---
PT'S FAMILY WERE IN THE LOBBY TALKING WITH PROVIDER AND [facility] DENTAL COORDINATOR. THIS PC RN JOINED CARE TEAM AND FAMILY TO FACILITATE WHAT HOME HOSPICE WOULD LOOK LIKE FOR PT AND FAMILY. EDUCATED ON PAIN, ANXIETY SYMPTOM MANAGEMENT. ALSO REVIEWED HOSPICE SERVICES AVAILABLE. GRINDING WHEEL INSPECTOR PROVIDED FAMILY WITH A HOME CAREGIVER LIST. PT'S DTR REPORTS, PT WOULD LIKE HIS BODY DONATED TO SCIENCE. THIS PC RN PROVIDED A LIST OF [place] WHOLE BODY DONATION SITES PER FAMILY REQUEST. UPDATED ORDERS PER CONSULTATION WITH PROVIDER. PAIGE CATHETER TO REMAIN IN PLACE UPON DISCHARGE FOR COMFORT/EOL CARE. PENDING ADMISSION TO [facility] TOMORROW 10/22/24. PC TO REMAIN AVAILABLE NEEDED.
--- NOTE | 2024-10-21 15:26 | NUR ---
FAMILY REQUESTED A INSURANCE SALES PRODUCER VISIT WHEN PT GETS HOME TOMORROW 10/22/24. PHONE CALL PLACED TO [facility], SPOKE WITH TELEPHONE RECORDER LUCIA. SHE WILL BE IN CONTACT WITH FATHER ALYSSA TO INQUIRE ABOUT AVAILABILTY FOR HIM TO SEE PT WHEN PT GETS HOME. PT RECEIVED LAST RIGHTS ON 10/14/24 PER REPORT FROM LUCIA WITH [facility].
--- NOTE | 2024-10-21 20:00 | NUR ---
SHIFT SUMMARY MR SEN HAS BEEN MOSTLY NON-VERBAL THIS SHIFT, SOME MUTTERED WORDS IN THE LAST 1-2 HOURS OF THE SHIFT. SUPPORTIVE FAMILY AT BEDSIDE. PT MOVED TO COMFORT CARE STATUS WITH A PLAN TO DISCHARGE HOME ON HOME HOSPICE TOMORROW. HE SEEMED VERY COMFORTABLE IN THE EARLIER PART OF THE SHIFT BUT HAD SOME MOANING ON AND OFF IN THE LATER PART OF THE SHIFT AND FAMILY WERE CONCERNED THAT HE WAS UNCOMFORTABLE. HE WAS GIVEN ROXINOL, FIRST DOSE OF 5MG WAS WELL TOLERATED BUT DISCOMFORT RETURNED WITHIN THE HOUR, FURTHER DOSES OF 10MG, LAST DOSE WAS 10MG TO MAKE TOTAL FOR THE HOUR 20MG, BUT PT WOULD SEEM TO BE ABLE TO TOLERATE A HIGHER DOSE FOR COMFORT. PAIGE N PLACE WITH HEMATURIA. BLADDER IRRIGATION USED INTERMITTANTLY WHEN NEEDED. PLAN FOR PT TO BE DISCHARGED WITH A PAIGE. PIVS REMOVED PER FMAILY REQUEST. BED LOW, CALL LIGHT IN REACH, FAMILY AT BEDSIDE.
--- NOTE | 2024-10-22 00:10 | NUR ---
RESTING QUIETLY. REPOSITIONED ABOUT EVERY 2 HRS PER PT ALLOWS. NO C/O VOICED. TOLERATED MOST OF HS MEDS. HOB ELEVATED. CALL LIGHT IN REACH
--- NOTE | 2024-10-22 03:21 | NUR ---
ARTILLERY OR NAVAL GUNFIRE OBSERVER SUMMARY PT REMAINS ON COMFORT CARE. FAMILY WAS AT BEDSIDE AT SHIFT COMMENCE BUT LEFT A FEW HOURS LATER. RECEIVING SUBLINGUAL ROXINAL INTERMITTENTLY FOR DISCOMFORT AND AIR HUNGER, (SEE MAR FOR DETAILS). OPENED EYES A FEW TIMES HE WAS CHANGED. INTERMITTENT BLADDER IRRIGATION IN USE - BLOOD CLOTS NOTED IN URINE/PAIGE. 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 WILL CONTINUE TO REPOSITION FOR COMFORT PT ALLOWS. CALL LIGHT IN REACH, RAILS UP X 2 AND BED IN LOW POSITION FOR SAFETY.
--- NOTE | 2024-10-22 10:38 | NUR ---
"Spiritual Care | Comfort Care Nurse request Pt. is on comfort care and has begun to transition and family are at bedside when they welcome my visit. Facilitated some life review and captured some of the details about the pt. Prayed for the Pt. and gave a blessing for the family. Family verbalized gratitude for the spiritual care visit. Will remain available to the family and the staff. No EOL decisions were made in this visit."
--- NOTE | 2024-10-22 12:19 | NUR ---
SPOKE TO PT FAMILY- PT APPEARS RELAXED AND COMFORTABLE. PAIGE IN PLACE PATENT AND DRAINING YELLOW URINE. PT LAYING ON HIS RIGHT SIDE, PER FAMILY IT IS HIS FAVORITE SIDE TO LAY ON. OFFERED REPOSITION BUT THE PT IS BREATHING 1-2 BREATHS PER MINUTE, AND SEEMS COMFORTABLE, FAMILY WOULD LIKE HIM TO STAY ON THE SIDE A BIT LONGER. WILL DO A WEIGHT SHIFT A BIT LATER.
--- NOTE | 2024-10-22 12:36 | NUR ---
CALLED DR CHAPARRO- JOSUE 1226 PT FAMILY CALLED SAYING THE PT IS NO LONGER BREATHING. THIS RN AUSCULTATED NO BREATH SOUNDS NO PULSES PALPABLE. SECOND RN ANALYN CONFIRMED THE SAME. TONasra 1226. NOTIFIED PASTRY COOK HELPER, PALLIATIVE CARE RN, PASTORAL CARE CAME BACK AT THE REQUEST OF THE FAMILY AND DR CHAPARRO NOTIFIED. FAMILY REMAINS IN THE ROOM AT THE BEDSIDE AT THIS TIME, WAITING FOR ONE ADDITIONAL FAMILY MEMBER.
--- NOTE | 2024-10-22 13:00 | NUR ---
"Spiritual Care | Nurse/Family EOL request - [facility] Pt. had passed and many family are present at the bedside when this network security consultant arrived. After assessing the emotions of the room and giving pastoral care. Scripture is read and prayers for the family are given. EOL decisions and education are confirmed. Family has chosen [facility] in [place] as their home, and will notify the nursing staff when the last family member leaves bedside. Family verbalized gratitude for the spiritual care visits."
--- NOTE | 2024-10-22 17:12 | NUR ---
PT WAS COLLECTED BY THE MORTUARY PERSONEL, HE HAD A BLANKET AND A PILLOW WITH HIM WHEN HE DC'D. PAIGE CATH, AND ALL LINES AND TUBES WERE DC'D PRIOR TO PT LEAVING.
== END 2024-10-22 12:26 | DRG 682 ==
LOC: ER 17:10 → MEDS 17:11 → ICUE 10-08 15:08 → MEDS 10-08 15:08 → PCU 10-13 15:35 → ICUE 10-17 18:25 → PCU 10-19 21:10 → MEDS 10-20 19:02 → EDPENDDISTM 10-22 12:26 → ENPENDDIS 10-22 12:26 → MEDS 10-22 12:26 → EDPENDDISDT 10-22 12:26
PROVIDERS: Emergency Medicine; Family Medicine; Nurse Practitioner Acute Care; Student in an Organized Health Care Education/Training Program; ADMIT Internal Medicine
PROC: HZ2ZZZZ Detoxification Services for Substance Abuse Treatment (ICD-10-PCS; 2024-10-09)
PROC: 0T9B70Z Drainage of Bladder with Drainage Device, Via Natural or Artificial Opening (ICD-10-PCS; 2024-10-09)
PROC: 0W9G3ZZ Drainage of Peritoneal Cavity, Percutaneous Approach (ICD-10-PCS; principal; 2024-10-15)
PROC: 3E0336Z Introduction of Nutritional Substance into Peripheral Vein, Percutaneous Approach (ICD-10-PCS; 2024-10-15)
DX: N17.9 Acute kidney failure, unspecified (principal); E43 Unspecified severe protein-calorie malnutrition; G92.8 Other toxic encephalopathy; J69.0 Pneumonitis due to inhalation of food and vomit; J96.01 Acute respiratory failure with hypoxia; J18.9 Pneumonia, unspecified organism; K72.00 Acute and subacute hepatic failure without coma; Z66 Do not resuscitate; Z51.5 Encounter for palliative care; I13.0 Hypertensive heart and chronic kidney disease with heart failure and stage 1 through stage 4 chronic kidney disease, or unspecified chronic kidney disease; I50.32 Chronic diastolic (congestive) heart failure; N39.0 Urinary tract infection, site not specified; I48.20 Chronic atrial fibrillation, unspecified; E87.0 Hyperosmolality and hypernatremia; F10.239 Alcohol dependence with withdrawal, unspecified; E87.20 Acidosis, unspecified; N18.30 Chronic kidney disease, stage 3 unspecified; K76.0 Fatty (change of) liver, not elsewhere classified; E87.6 Hypokalemia; D63.1 Anemia in chronic kidney disease; M10.9 Gout, unspecified; J44.9 Chronic obstructive pulmonary disease, unspecified; E87.70 Fluid overload, unspecified; G31.84 Mild cognitive impairment of uncertain or unknown etiology; E86.1 Hypovolemia; D69.59 Other secondary thrombocytopenia; B95.2 Enterococcus as the cause of diseases classified elsewhere; E87.8 Other disorders of electrolyte and fluid balance, not elsewhere classified; R73.9 Hyperglycemia, unspecified; K72.10 Chronic hepatic failure without coma; D72.829 Elevated white blood cell count, unspecified; D64.9 Anemia, unspecified; K70.31 Alcoholic cirrhosis of liver with ascites; B96.5 Pseudomonas (aeruginosa) (mallei) (pseudomallei) as the cause of diseases classified elsewhere; E83.39 Other disorders of phosphorus metabolism; E53.8 Deficiency of other specified B group vitamins; F10.26 Alcohol dependence with alcohol-induced persisting amnestic disorder; Z79.01 Long term (current) use of anticoagulants; Z86.73 Personal history of transient ischemic attack (TIA), and cerebral infarction without residual deficits; Z71.41 Alcohol abuse counseling and surveillance of alcoholic; Z90.49 Acquired absence of other specified parts of digestive tract; Z87.891 Personal history of nicotine dependence; Z68.25 Body mass index [BMI] 25.0-25.9, adult
CPT/HCPCS: 0202U; 36415; 49083; 70450; 70496; 70498; 71045; 74177; 76770; 80048; 80053; 80074; 81001; 82040; 82042; 82140; 82390; 82533; 82607; 82728; 82746; 82803; 82945; 82947; 83540; 83550; 83605; 83615; 83690; 83735; 83880; 83930; 83986; 84100; 84145; 84157; 84443; 84478; 85025; 85027; 85610; 85730; 87040; 87070; 87075; 87077; 87086; 87186; 87205; 87633; 89051; 93005; 93010; 93306; 94640; 94664; 94760; 94762; 96365-59; 96367; 97110; 97116; 97129; 97162; 97165; 99285-25; A9270; C1751; G0378; J0295; J0696; J1720; J1885; J1940; J2060; J2185; J2270; J3411; J3430; J3475; J3480; J7030; J7050; J7060; J7070; J7120; P9047; Q9967